=== PATIENT | female | born 1985 | race Caucasian/White ===

== ENCOUNTER 2017-12-05 01:21 | Observation (INO) | payer MEDICARE, MEDICAID ==
[2017-12-05] MEDS ORDERED: Prochlorperazine 10 MG/2 ML SDV IVPUSH ONE (02:11)
[2017-12-05] MEDS ORDERED: fentaNYL 100 MCG/2 ML SDV IVPUSH ONE (02:11)
[2017-12-05] MEDS ORDERED: Sodium Chloride 0.9% 10 ML Syringe FLUSH PRN ×2 (02:11→10:11)
[2017-12-05] MEDS ORDERED: Sodium Chloride 0.9% 1,000 ML IV SCH (02:15)
--- NOTE | 2017-12-05 02:33 | EDM.PDOC ---
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 Additional abdominal surgery includes sleeve gastrectomy,and cholecystectomy. Was trying to get to bed tonight at about 11 PM when she had fairly sudden onset of upper abdominal pain, radiates upwards and bilateral flank pain Vomited twice. She's been tired and nauseated all day but the pain didn't come on until this evening. She also reports feeling lightheaded when she gets up. last bowel movement was in the morning, pale, as usual loose. Pain feels like when she's had small bowel obstruction. In June she had about 3 days of abdominal pain that she put up with, didn' t see anyone and that subsided on its own. She is on oral contraceptive. No comfortable position, pain is aggravated by movement outpatient exertion. Not affected by breathing. No urinary symptoms Middle Abdomen Pain Score (Numeric/FACES): 10 - Related Data Allergies Allergy/AdvReac Type Severity Reaction Status Date / Time caffeine Allergy Severe Chest Verified 03/25/16 03:52 Presssure diphenhydramine HCl Allergy Severe Chest Verified 03/25/16 03:52 [From Benadryl] Tightness azithromycin Allergy Hives Verified 03/25/16 03:52 clindamycin Allergy Hives Verified 03/25/16 03:52 codeine Allergy Hives Verified 03/25/16 03:52 doxycycline Allergy Hypertensio Verified 03/25/16 03:52 n hydrocodone Allergy Hives Verified 03/25/16 03:52 hydromorphone HCl Allergy Hypertensio Verified 03/25/16 03:52 [From Dilaudid] n ketorolac tromethamine Allergy Headache Verified 03/25/16 03:52 [From Toradol] loratadine [From Claritin] Allergy Cannot Verified 03/25/16 03:52 Remember oxycodone [Oxycodone] Allergy Hives Verified 03/25/16 03:52 Penicillins Allergy Cannot Verified 03/25/16 03:52 Remember sulfite Allergy Cannot Verified 03/25/16 03:52 Remember tomato [Tomato] Allergy Rash Verified 03/25/16 03:52 ondansetron HCl [From Zofran] AdvReac Intermediate Migraine Verified 03/25/16 03 :52 tramadol AdvReac Headache Verified 03/25/16 03:52 navarro jello Allergy Vomiting Uncoded 03/25/16 03:52 Home Meds: Home Meds Colestipol HCl [Colestipol HCl] 1 gm PO BID 09/26/13 [History] Ethinyl Estradiol/Drospirenone [Caitlin 28] 1 each PO DAILY 09/26/13 [History] Levothyroxine Sodium [Synthroid] 200 mcg PO DAILY 09/26/13 [History] Magnesium 400 mg PO DAILY 09/26/13 [History] Methocarbamol [Robaxin] 1,500 mg PO TID PRN 09/26/13 [History] Octreotide [SandoSTATIN LAR] 20 mg IM .Q4W 09/29/13 [History] Propranolol [Inderal] 10 mg PO TID 07/21/14 [History] Albuterol Sulfate [Proair Hfa] 2 puff IH ASDIRECTED PRN 07/09/15 [History] Budesonide/Formoterol [Symbicort 160-4.5 MCG] 2 puff INH BID 07/09/15 [History] EPINEPHrine [Epipen 2-Mike] 0.3 ml IM ASDIRECTED PRN 07/09/15 [History] Lidocaine 5% [Lidoderm 5%] 1 patch TOP DAILY 07/09/15 [History] Multivit with Calcium,Iron,Min [Multivitamins G-Rlyxfux-Wfkc] 1 tab PO BID 07/09 [History] Multivitamin [Multi-Vitamin Daily] 1 tab.chew PO BID 07/09/15 [History] Omeprazole [Prilosec] 40 mg PO DAILY 07/09/15 [History] Promethazine [Phenergan] 25 mg PO Q6H PRN 07/09/15 [History] Fluocinolone/Emol Cmb#65 [Synalar 0.025% Cream Kit] 1 dose TP BID 03/25/16 [ History] Past Medical History Cardiovascular History: Reports: Heart Murmur, Other (See Below) Other Cardiovascular History: tachy Respiratory History: Reports: Bronchitis, Recurrent Other Respiratory History: exercised induced asthma Gastrointestinal History: Reports: Bowel Obstruction [employer] History: Reports: Polycystic Ovaries Other Musculoskeletal History: left and right arm fracture Psychiatric History: Reports: Anxiety, Depression Endocrine/Metabolic History: Reports: Hypothyroidism Hematologic History: Reports: B12 Deficiency Other Hematologic History: B12 and B1 deficiency Other Oncologic History: 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, 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 - Infectious Disease History Infectious Disease History: Reports: Chicken Pox - Past Surgical History HEENT Surgical History: Reports: Adenoidectomy GI Surgical History: Reports: Appendectomy, Cholecystectomy, Hernia, Abdominal Musculoskeletal Surgical History: Reports: Arthroscopic Knee Oncologic Surgical History: Reports: Other (See Below) Social & Family History - Family History Family Medical History: Noncontributory - Tobacco Use Smoking Status *Q: Former Smoker Years of Tobacco use: 5 Packs/Tins Daily: 0.5 Used Tobacco, but Quit: No Month Tobacco Last Used: oct Second Hand Smoke Exposure: No - Caffeine Use Caffeine Use: Reports: None - Alcohol Use Days Per Week of Alcohol Use: 0 - Recreational Drug Use Recreational Drug Use: No ED ROS GENERAL - Review of Systems Review Of Systems: See Below Constitutional: Reports: Decreased Appetite, Other (sleep disturbance). Denies : Fever, Chills HEENT: Reports: No Symptoms Respiratory: Reports: No Symptoms Cardiovascular: Reports: No Symptoms GI/Abdominal: Reports: Abdominal Pain, Diarrhea (chronic), Decreased Appetite, Nausea, Vomiting, Other (bloating) : Reports: No Symptoms Musculoskeletal: Reports: No Symptoms Skin: Reports: No Symptoms Neurological: Reports: No Symptoms Immunologic: Reports: No Symptoms ED EXAM, GI/ABD - Physical Exam Exam: See Below Exam Limited By: No Limitations General Appearance: Moderate Distress, Other (very uncomfortable almost tearful , vital signs normal, no difficulty breathing and speaking but she is in considerable discomfort) Eyes: Bilateral: Normal Appearance Ears: Normal External Exam, Hearing Grossly Normal Nose: Normal Inspection Head: Atraumatic, Normocephalic Neck: Normal Inspection Respiratory/Chest: No Respiratory Distress, Lungs Clear, Normal Breath Sounds Cardiovascular: Normal Peripheral Pulses, Regular Rate, Rhythm, No Murmur GI/Abdominal Exam: Soft, Distended, Tender (upper abdomen/epigastric area), Abnormal Bowel Sounds (slightly increased in quantity, slight increase in pitch) . No: Mass, Hepatomegaly Back Exam: Normal Inspection Extremities: Normal Inspection Neurological: Alert, No Motor/Sensory Deficits Psychiatric: Anxious, Tearful Skin Exam: Warm, Dry, Intact, Normal Color, No Rash Lymphatic: No Adenopathy Course - Vital Signs Last Recorded V/S: Last Vital Signs Temp 36.9 C 12/05/17 01:33 Pulse 84 12/05/17 02:52 Resp 18 12/05/17 01:33 BP 103/54 L 12/05/17 05:00 Pulse Ox 97 12/05/17 01:33 - Orders/Labs/Meds Orders: Active Orders 24 hr Category Date Time Status Peripheral IV Care [RC] . DIRECTED Care 12/05/17 02:12 Active Abdomen 2V AP Flat Upright [CR] Stat Exams 12/05/17 02:11 Taken Sodium Chloride 0.9% [Normal Saline] 1,000 ml Med 12/05/17 02:15 Active IV ASDIRECTED Sodium Chloride 0.9% [Saline Flush] Med 12/05/17 02:11 Active 10 ml FLUSH ASDIRECTED PRN Peripheral IV Insertion Adult [OM.PC] Routine Oth 12/05/17 02:11 Ordered Medication Orders Sodium Chloride (Normal Saline) 1,000 mls @ 250 mls/hr IV ASDIRECTED [facility] Last Admin: 12/05/17 02:47 Dose: 250 mls/hr Sodium Chloride (Saline Flush) 10 ml FLUSH ASDIRECTED PRN PRN Reason: Keep Vein Open Labs: Laboratory Tests 12/05/17 12/05/17 12/05/17 Range/Units 02:00 02:00 02:00 WBC 12.8 H (4.5-11.0) K/uL RBC 4.62 (3.30-5.50) M/uL Hgb 14.2 D (12.0-15.0) g/dL Hct 43.0 (36.0-48.0) % MCV 93 (80-98) fL MCH 31 (27-31) pg MCHC 33 (32-36) % Plt Count 273 (150-400) K/uL Sodium 137 L (140-148) mmol/L Potassium 4.2 (3.6-5.2) mmol/L Chloride 102 (100-108) mmol/L Carbon Dioxide 25 (21-32) mmol/L Anion Gap 14.2 H (5.0-14.0) mmol/L BUN 17 D (7-18) mg/dL Creatinine 0.8 (0.6-1.0) mg/dL Est Cr Clr Drug Dosing 97.27 mL/min Estimated GFR (MDRD) > 60 (>60) Glucose 94 (74-106) mg/dL Lactic Acid 2.0 (0.4-2.0) mmol/L Calcium 8.6 (8.5-10.1) mg/dL Total Bilirubin 0.2 D (0.2-1.0) mg/dL AST 20 (15-37) U/L ALT 27 (12-78) U/L Alkaline Phosphatase 56 (46-116) U/L Total Protein 6.6 (6.4-8.2) g/dL Albumin 3.4 (3.4-5.0) g/dL Globulin 3.2 (2.3-3.5) g/dL Albumin/Globulin Ratio 1.1 L (1.2-2.2) Lipase 86 (73-393) U/L Meds: Medications Generic Name Dose Route Start Last Admin Trade Name Fregregg PRN Reason Stop Dose Admin Sodium Chloride 1,000 mls @ 250 mls/hr 12/05/17 02:15 12/05/17 02:47 Normal Saline IV 250 mls/hr ASDIRECTED RYLEY Administration Sodium Chloride 10 ml 12/05/17 02:11 Saline Flush FLUSH ASDIRECTED PRN Keep Vein Open Discontinued Medications Generic Name Dose Route Start Last Admin Trade Name Fregregg PRN Reason Stop Dose Admin Fentanyl 100 mcg 12/05/17 02:11 Sublimaze IVPUSH 12/05/17 02:12 ONETIME ONE Hydroxyzine HCl 50 mg 12/05/17 02:34 Vistaril IM 12/05/17 02:35 ONETIME ONE Promethazine HCl 12.5 mg/ 50.5 mls @ 200 mls/hr 12/05/17 02:42 12/05/17 02:47 Sodium Chloride IV 12/05/17 02:57 200 mls/hr ONETIME STA Administration Meperidine HCl 75 mg 12/05/17 02:34 12/05/17 02:39 Demerol IVPUSH 12/05/17 02:35 75 mg ONETIME STA Administration Prochlorperazine Edisylate 5 mg 12/05/17 02:11 Compazine IVPUSH 12/05/17 02:12 ONETIME ONE - Re-Assessments/Exams Free Text/Narrative Re-Assessment/Exam: 12/05/17 02:41 32-year-old female with history of carcinoid tumor resection involving right hemicolectomy, small bowel obstruction requiring operative repair, abdominal hernia repair complicated by infection who presents with sudden onset of abdominal pain bloating vomiting tonight. differential diagnosis includes small bowel obstruction, colitis, pancreatitis, volvulus at other causes of abdominal pain. Less likely to be renal Intravenous saline, Demerol 75 mg and Phenergan 12.5 mg, she has extensive intolerance which limits the choices of medications 12/05/17 03:34 mild improvement, more comfortable, declines further pain medication at this time Abdominal x-ray negative for acute changes by my interpretation although x-ray has limitations Mild elevation WBC of 12.8, electrolytes normal except sodium 137 Anion gap minimally above normal Hepatic profile urea creatinine and lipase normal Continue IV saline, observed for the next few hours if it worsens or doesn't improve then CT scan may be necessary to determine if she has obstruction or infection or other condition causing her pain 12/05/17 03:35 12/05/17 06:53 Did not need further medicine Jenny the night, however she still has pain there and she knows that she moves it aggravates the discomfort. Has received a liter of fluid over the time she was here. 12/05/17 07:10 Moving slowly, still noticeable discomfort when she urinated Discussed with Mildred BRADLEY, Dr. King is away on vacation Observation admission for abdominal pain, possible partial small bowel obstruction Departure - Departure Time of Disposition: 07:10 Disposition: Refer to Observation Clinical Impression: Partial small bowel obstruction, Generalized abdominal pain - Discharge Information Referrals: Karie Arriaga PA [Primary Care Provider] - - My Orders Last 24 Hours: My Active Orders 12/05/17 02:11 Abdomen 2V AP Flat Upright [CR] Stat Sodium Chloride 0.9% [Saline Flush] 10 ml FLUSH ASDIRECTED PRN Peripheral IV Insertion Adult [OM.PC] Routine 12/05/17 02:12 Peripheral IV Care [RC] . DIRECTED 12/05/17 02:15 Sodium Chloride 0.9% [Normal Saline] 1,000 ml IV ASDIRECTED - Assessment/Plan Last 24 Hours: My Active Orders 12/05/17 02:11 Abdomen 2V AP Flat Upright [CR] Stat Sodium Chloride 0.9% [Saline Flush] 10 ml FLUSH ASDIRECTED PRN Peripheral IV Insertion Adult [OM.PC] Routine 12/05/17 02:12 Peripheral IV Care [RC] . DIRECTED 12/05/17 02:15 Sodium Chloride 0.9% [Normal Saline] 1,000 ml IV ASDIRECTED
[2017-12-05] MEDS ORDERED: hydrOXYzine HCl 100 MG/2 ML SDV IM ONE (02:34)
[2017-12-05] MEDS ORDERED: Meperidine PF 75 MG/ML Syringe IVPUSH STA (02:34)
[2017-12-05] MEDS ORDERED: Promethazine 12.5 MG in Sodium Chloride 0.9% 50 ML IV STA (02:42)
[2017-12-05] MEDS ORDERED: Dextrose 5%-Lactated Ringers 1,000 ML IV SCH (08:15)
[2017-12-05] MEDS ORDERED: Meperidine PF 25 MG/ML Syringe IVPUSH PRN (08:18)
[2017-12-05] MEDS ORDERED: Promethazine 12.5 MG in Sodium Chloride 0.9% 50 ML IV PRN (08:19)
[2017-12-05] MEDS ORDERED: Iohexol 300 MG/ML 30 ML Bottle PO ONE (08:40)
--- NOTE | 2017-12-05 09:09 | CR ---
Abdomen 2V AP Flat Upright FINDINGS: There are postsurgical changes of the stomach. Surgical clips and sutures are noted. The gregg wel gas pattern is unremarkable. There is no bowel distention. There are no pathologic air-fluid leve ls. No free air is seen. No pathologic calcifications are demonstrated. IMPRESSION: No acute findings are demonstrated.
[2017-12-05] MEDS ORDERED: Iopamidol 612 MG/ML 150 ML Bottle IV PRN (10:11)
[2017-12-05] MEDS ORDERED: Sodium Chloride 0.9% 80 ML IV SCH (10:15)
[2017-12-05 11:27] VITALS: BP 111/61
--- NOTE | 2017-12-06 07:55 | PCM.HP ---
H&P History of Present Illness - General Date of Service: 12/06/17 Source of Information: Patient History Limitations: Reports: No Limitations - History of Present Illness Onset of Symptoms: Reports: Sudden Symptom Onset Date: 12/05/17 Symptom Onset Time: 23:00 Duration of Symptoms: Reports: Waxing/Waning Location: Reports: Abdomen (right middle abdominal quadrant) Quality: Reports: Pressure, Same as Previous Episode, Stabbing, Throbbing Improves with: Reports: Medication Worsens with: Reports: Breathing, Eating, Movement Context: Reports: Sick Contact Associated Symptoms: Reports: Loss of Appetite, Nausea/Vomiting Middle Abdomen Pain Score (Numeric/FACES): 5 - Related Data Allergies/Adverse Reactions: Allergies Allergy/AdvReac Type Severity Reaction Status Date / Time caffeine Allergy Severe Chest Verified 03/25/16 03:52 Presssure diphenhydramine HCl Allergy Severe Chest Verified 03/25/16 03:52 [From Benadryl] Tightness azithromycin Allergy Hives Verified 03/25/16 03:52 clindamycin Allergy Hives Verified 03/25/16 03:52 codeine Allergy Hives Verified 03/25/16 03:52 doxycycline Allergy Hypertensio Verified 03/25/16 03:52 n hydrocodone Allergy Hives Verified 03/25/16 03:52 hydromorphone HCl Allergy Hypertensio Verified 03/25/16 03:52 [From Dilaudid] n ketorolac tromethamine Allergy Headache Verified 03/25/16 03:52 [From Toradol] loratadine [From Claritin] Allergy Cannot Verified 03/25/16 03:52 Remember oxycodone [Oxycodone] Allergy Hives Verified 03/25/16 03:52 Penicillins Allergy Cannot Verified 03/25/16 03:52 Remember sulfite Allergy Cannot Verified 03/25/16 03:52 Remember tomato [Tomato] Allergy Rash Verified 03/25/16 03:52 ondansetron HCl [From Zofran] AdvReac Intermediate Migraine Verified 03/25/16 03 :52 tramadol AdvReac Headache Verified 03/25/16 03:52 navarro jello Allergy Vomiting Uncoded 03/25/16 03:52 Home Medications: Home Meds Colestipol HCl [Colestipol HCl] 1 gm PO BID 09/26/13 [History] Ethinyl Estradiol/Drospirenone [Caitlin 28] 1 each PO DAILY 09/26/13 [History] Levothyroxine Sodium [Synthroid] 200 mcg PO DAILY 09/26/13 [History] Magnesium 400 mg PO DAILY 09/26/13 [History] Methocarbamol [Robaxin] 1,500 mg PO TID PRN 09/26/13 [History] Octreotide [SandoSTATIN LAR] 20 mg IM .Q4W 09/29/13 [History] Propranolol [Inderal] 10 mg PO TID 07/21/14 [History] Albuterol Sulfate [Proair Hfa] 2 puff IH ASDIRECTED PRN 07/09/15 [History] Budesonide/Formoterol [Symbicort 160-4.5 MCG] 2 puff INH BID 07/09/15 [History] EPINEPHrine [Epipen 2-Mike] 0.3 ml IM ASDIRECTED PRN 07/09/15 [History] Lidocaine 5% [Lidoderm 5%] 1 patch TOP DAILY 07/09/15 [History] Multivit with Calcium,Iron,Min [Multivitamins S-Vkwbjhn-Plik] 1 tab PO BID 07/09 [History] Multivitamin [Multi-Vitamin Daily] 1 tab.chew PO BID 07/09/15 [History] Omeprazole [Prilosec] 40 mg PO DAILY 07/09/15 [History] Promethazine [Phenergan] 25 mg PO Q6H PRN 07/09/15 [History] Fluocinolone/Emol Cmb#65 [Synalar 0.025% Cream Kit] 1 dose TP BID 03/25/16 [ History] Past Medical History Cardiovascular History: Reports: Heart Murmur, Other (See Below) Other Cardiovascular History: tachycardia Respiratory History: Reports: Bronchitis, Recurrent Other Respiratory History: exercised induced asthma Gastrointestinal History: Reports: Bowel Obstruction [employer] History: Reports: Polycystic Ovaries Other Musculoskeletal History: left and right arm fracture Psychiatric History: Reports: Anxiety, Depression Endocrine/Metabolic History: Reports: Hypothyroidism Hematologic History: Reports: B12 Deficiency Other Hematologic History: B12 and B1 deficiency Other Oncologic History: 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, 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 - Infectious Disease History Infectious Disease History: Reports: Chicken Pox - Past Surgical History HEENT Surgical History: Reports: Adenoidectomy GI Surgical History: Reports: Appendectomy, Cholecystectomy, Hernia, Abdominal Musculoskeletal Surgical History: Reports: Arthroscopic Knee Oncologic Surgical History: Reports: Other (See Below) Social & Family History - Family History Family Medical History: Noncontributory - Tobacco Use Smoking Status *Q: Former Smoker Years of Tobacco use: 5 Packs/Tins Daily: 0.5 Used Tobacco, but Quit: Yes Month Tobacco Last Used: 14 years Second Hand Smoke Exposure: No - Caffeine Use Caffeine Use: Reports: None - Alcohol Use Days Per Week of Alcohol Use: 0 - Recreational Drug Use Recreational Drug Use: No H&P Review of Systems - Review of Systems: Review Of Systems: See Below General: Reports: Weakness, Fatigue HEENT: Reports: No Symptoms Pulmonary: Reports: No Symptoms Cardiovascular: Reports: No Symptoms Gastrointestinal: Reports: Abdominal Pain (see chief complaint), Other (BMs have been regular) Genitourinary: Reports: No Symptoms Musculoskeletal: Reports: Back Pain (chronic) Skin: Reports: No Symptoms Psychiatric: Reports: Depression Neurological: Reports: No Symptoms Hematologic/Lymphatic: Reports: No Symptoms Immunologic: Reports: No Symptoms Exam - Exam Exam: See Below - Vital Signs Vital Signs: Last Vital Signs Temp 98.5 F 12/05/17 11:05 Pulse 55 L 12/05/17 11:05 Resp 16 12/05/17 11:05 BP 111/61 12/05/17 11:05 Pulse Ox 100 12/05/17 11:05 Weight: 197 lb 1.492 oz - Exam General: Alert, Oriented, Mild Distress HEENT: PERRLA Neck: Supple, Trachea Midline Lungs: Clear to Auscultation, Normal Respiratory Effort Cardiovascular: Regular Rate, Regular Rhythm GI/Abdominal Exam: Soft, Tender (right mid and upper abdominal quadrants radiating to her back) (Female) Exam: Deferred Rectal (Female) Exam: Deferred Back Exam: Normal Inspection, Full Range of Motion Extremities: Normal Inspection, Normal Range of Motion Skin: Warm, Dry, Intact Neurological: Cranial Nerves Intact Neuro Extensive - Mental Status: Alert, Oriented x3, Normal Mood/Affect Neuro Extensive - Motor, Sensory, Reflexes: CN II-XII Intact Psychiatric: Alert, Normal Affect, Normal Mood - Patient Data Lab Results Last 24 hrs: Laboratory Results - last 24 hr 12/05/17 12/05/17 Range/Units 08:17 10:32 Ferritin 192 (8-388) ng/ml Urine Color Yellow Urine Appearance Slightly cloudy Urine pH 5.0 (4.5-8.0) Ur Specific [place] 1.015 (1.008-1.030) Urine Protein Negative (NEGATIVE) mg/dL Urine Glucose (UA) Normal (NEGATIVE) mg/dL Urine Ketones Negative (NEGATIVE) mg/dL Urine Occult Blood Negative (NEGATIVE) Urine Nitrite Negative (NEGATIVE) Urine Bilirubin Small (NEGATIVE) Urine Urobilinogen Normal (NORMAL) mg/dL Ur Leukocyte Esterase Negative (NEGATIVE) Urine RBC Not seen (0-5) Urine WBC 0-5 (0-5) Ur Epithelial Cells Few Amorphous Sediment Not seen Urine Bacteria Few Urine Mucus Moderate Result Diagrams: 12/05/17 02:00 12/05/17 02:00 *Q Meaningful Use (ADM) - VTE *Q VTE Criteria *Q: - Stroke *Q Stroke Criteria *Q: - AMI *Q AMI Criteria *Q: - Problem List (1) Status post laparoscopic sleeve gastrectomy SNOMED Code(s): 260583522 ICD Code: Z98.84 - BARIATRIC SURGERY STATUS Status: Acute (2) Partial small bowel obstruction SNOMED Code(s): 804760533 ICD Code: K56.600 - PARTIAL INTESTINAL OBSTRUCTION, UNSPECIFIED TO CAUSE Status: Acute (3) Carcinoid tumor SNOMED Code(s): 831878297 ICD Code: D3A.00 - BENIGN CARCINOID TUMOR OF UNSPECIFIED SITE Status: Chronic Problem List Initiated/Reviewed/Updated: Yes Orders Last 24hrs: Active Orders 24 hr Category Date Time Status Activity as Tolerated [RC] .Routine Care 12/05/17 08:06 Active Ambulate [RC] QID Care 12/05/17 08:06 Active Height and Weight [RC] UPON Care 12/05/17 08:06 Active Intake and Output [RC] QSHIFT Care 12/05/17 08:11 Active May Shower [RC] ASDIRECTED Care 12/05/17 08:06 Active Ready for Discharge [RC] PER UNIT ROUTINE Care 12/05/17 12:32 Active Up to Chair [RC] QID Care 12/05/17 08:06 Active Vital Signs [RC] Q8H Care 12/05/17 08:06 Active Sequential Compression Device [OM.PC] Routine Oth 12/05/17 08:06 Ordered Assessment/Plan Comment:: Admit to Observation CT of Abdomen/Pelvis with oral and IV Contrast. Call with results of CT Scan See Copy of orders in EMR Mildred Vaughan 12/05/17
--- NOTE | 2017-12-06 08:01 | PCM.DCSUM1 ---
Discharge Summary - Discharge Data Discharge Date: 12/05/17 Discharge Disposition: Refer to Observation Condition: Good - Discharge Diagnosis/Problem(s) (1) Status post laparoscopic sleeve gastrectomy SNOMED Code(s): 386999060 ICD Code: Z98.84 - BARIATRIC SURGERY STATUS Status: Acute (2) Partial small bowel obstruction SNOMED Code(s): 255923663 ICD Code: K56.600 - PARTIAL INTESTINAL OBSTRUCTION, UNSPECIFIED TO CAUSE Status: Acute (3) Carcinoid tumor SNOMED Code(s): 308854490 ICD Code: D3A.00 - BENIGN CARCINOID TUMOR OF UNSPECIFIED SITE Status: Chronic - Patient Instructions Diet: Regular Diet as Tolerated Showering/Bathing: May Shower Notify Provider of: Fever, Increased Pain, Nausea and/or Vomiting - Discharge Plan Home Medications: Home Meds Colestipol HCl [Colestipol HCl] 1 gm PO BID 09/26/13 [History] Ethinyl Estradiol/Drospirenone [Caitlin 28] 1 each PO DAILY 09/26/13 [History] Levothyroxine Sodium [Synthroid] 200 mcg PO DAILY 09/26/13 [History] Magnesium 400 mg PO DAILY 09/26/13 [History] Methocarbamol [Robaxin] 1,500 mg PO TID PRN 09/26/13 [History] Octreotide [SandoSTATIN LAR] 20 mg IM .Q4W 09/29/13 [History] Propranolol [Inderal] 10 mg PO TID 07/21/14 [History] Albuterol Sulfate [Proair Hfa] 2 puff IH ASDIRECTED PRN 07/09/15 [History] Budesonide/Formoterol [Symbicort 160-4.5 MCG] 2 puff INH BID 07/09/15 [History] EPINEPHrine [Epipen 2-Mike] 0.3 ml IM ASDIRECTED PRN 07/09/15 [History] Lidocaine 5% [Lidoderm 5%] 1 patch TOP DAILY 07/09/15 [History] Multivit with Calcium,Iron,Min [Multivitamins J-Nxjcjib-Fjbo] 1 tab PO BID 07/09 [History] Multivitamin [Multi-Vitamin Daily] 1 tab.chew PO BID 07/09/15 [History] Omeprazole [Prilosec] 40 mg PO DAILY 07/09/15 [History] Promethazine [Phenergan] 25 mg PO Q6H PRN 07/09/15 [History] Fluocinolone/Emol Cmb#65 [Synalar 0.025% Cream Kit] 1 dose TP BID 03/25/16 [ History] Referrals: Karie Arriaga PA [Primary Care Provider] - - Discharge Summary/Plan Comment DC Time >30 min.: No Discharge Summary/Plan Comment: Patient's IV infiltrated and she declined to have a CT Scan if she had to have another IV restarted. Pain had improved so she requested to be discharged. Leslie was able to eat and had no pain. Discharged in stable condition to follow up in 1 week or prn Mildred BRADLEY C - Patient Data Vitals - Most Recent: Last Vital Signs Temp 98.5 F 12/05/17 11:05 Pulse 55 L 12/05/17 11:05 Resp 16 12/05/17 11:05 BP 111/61 12/05/17 11:05 Pulse Ox 100 12/05/17 11:05 Weight - Most Recent: 197 lb 1.492 oz Lab Results - Last 24 hrs: Laboratory Results - last 24 hr 12/05/17 12/05/17 Range/Units 08:17 10:32 Ferritin 192 (8-388) ng/ml Urine Color Yellow Urine Appearance Slightly cloudy Urine pH 5.0 (4.5-8.0) Ur Specific [place] 1.015 (1.008-1.030) Urine Protein Negative (NEGATIVE) mg/dL Urine Glucose (UA) Normal (NEGATIVE) mg/dL Urine Ketones Negative (NEGATIVE) mg/dL Urine Occult Blood Negative (NEGATIVE) Urine Nitrite Negative (NEGATIVE) Urine Bilirubin Small (NEGATIVE) Urine Urobilinogen Normal (NORMAL) mg/dL Ur Leukocyte Esterase Negative (NEGATIVE) Urine RBC Not seen (0-5) Urine WBC 0-5 (0-5) Ur Epithelial Cells Few Amorphous Sediment Not seen Urine Bacteria Few Urine Mucus Moderate Med Orders - Current: Current Medications Discontinued Medications Fentanyl (Sublimaze) 100 mcg IVPUSH ONETIME ONE Stop: 12/05/17 02:12 Last Admin: 12/05/17 10:47 Dose: Not Given Hydroxyzine HCl (Vistaril) 50 mg IM ONETIME ONE Stop: 12/05/17 02:35 Last Admin: 12/05/17 10:48 Dose: Not Given Sodium Chloride (Normal Saline) 1,000 mls @ 250 mls/hr IV ASDIRECTED RYLEY Last Admin: 12/05/17 02:47 Dose: 250 mls/hr Promethazine HCl 12.5 mg/ (Sodium Chloride) 50.5 mls @ 200 mls/hr IV ONETIME STA Stop: 12/05/17 02:57 Last Admin: 12/05/17 02:47 Dose: 200 mls/hr Dextrose/Lactated Ringer's (Dextrose 5%-Lactated Ringers) 1,000 mls @ 125 mls/ hr IV ASDIRECTED RYLEY Last Admin: 12/05/17 09:01 Dose: 125 mls/hr Promethazine HCl 12.5 mg/ (Sodium Chloride) 50.5 mls @ 200 mls/hr IV Q6H PRN PRN Reason: Nausea/Vomiting Last Admin: 12/05/17 09:00 Dose: 200 mls/hr Sodium Chloride (Normal Saline) 80 mls @ 3.5 mls/sec IV ASDIRECTED [facility] Iohexol (Omnipaque) 20 ml PO ONETIME ONE Stop: 12/05/17 08:41 Last Admin: 12/05/17 09:11 Dose: 20 ml Iopamidol (Isovue-300 (61%)) 134 ml IV . DIRECTED PRN PRN Reason: RADIOLOGY EXAM Stop: 12/06/17 10:12 Meperidine HCl (Demerol) 75 mg IVPUSH ONETIME STA Stop: 12/05/17 02:35 Last Admin: 12/05/17 02:39 Dose: 75 mg Meperidine HCl (Demerol) 25 mg IVPUSH Q4H PRN PRN Reason: Pain Prochlorperazine Edisylate (Compazine) 5 mg IVPUSH ONETIME ONE Stop: 12/05/17 02:12 Last Admin: 12/05/17 10:47 Dose: Not Given Sodium Chloride (Saline Flush) 10 ml FLUSH ASDIRECTED PRN PRN Reason: Keep Vein Open Sodium Chloride (Saline Flush) 10 ml FLUSH ONETIME PRN PRN Reason: per radiology protocol *Q Meaningful Use (DIS) - VTE *Q VTE Criteria *Q: - Stroke *Q Stroke Criteria *Q: - AMI *Q AMI Criteria *Q:
== END 2017-12-05 13:00 ==
LOC: JP.ED 01:21 → JP.2SS 07:54
PROVIDERS: ADMIT Surgery; ATTEND Surgery
DX: K56.600 Partial intestinal obstruction, unspecified as to cause (principal); D3A.012 Benign carcinoid tumor of the ileum; J45.990 Exercise induced bronchospasm; F41.9 Anxiety disorder, unspecified; F32.9 Major depressive disorder, single episode, unspecified; E03.9 Hypothyroidism, unspecified; Z90.49 Acquired absence of other specified parts of digestive tract; Z98.84 Bariatric surgery status; Z79.899 Other long term (current) drug therapy; Z88.1 Allergy status to other antibiotic agents; Z88.8 Allergy status to other drugs, medicaments and biological substances; Z88.0 Allergy status to penicillin; Z88.2 Allergy status to sulfonamides; Z91.018 Allergy to other foods; Z87.891 Personal history of nicotine dependence
CPT/HCPCS: 36415; 74019; 80053; 81001; 82728; 83605; 83690; 85027; 96361; 96365; 96375; 99284; 99285; J2175; J2550; J7040; J7042; J7050; Q9965; G0378

== ENCOUNTER 2018-04-14 23:51 | Emergency (ER) | payer MEDICARE, MEDICAID ==
[2018-04-15] MEDS ORDERED: Cefdinir 300 MG Cap PO ONE (00:53)
[2018-04-15 00:58] VITALS: BP 132/96
--- NOTE | 2018-04-15 00:59 | EDM.PDOC ---
ED HPI GENERAL MEDICAL PROBLEM - General Chief Complaint: Genitourinary Problem Stated Complaint: BLADDER INFECTION Time Seen by Provider: 04/15/18 00:47 Source of Information: Reports: Patient, RN Notes Reviewed History Limitations: Reports: No Limitations - History of Present Illness INITIAL COMMENTS - FREE TEXT/NARRATIVE: 32-year-old female presents emergency department today complaint of burning with urination, she does have a history of frequent UTIs as well as multiple allergies this particular episode started a couple days ago with dysuria and frequency no fevers some back pain pelvis/bladder Pain Score (Numeric/FACES): 6 back pain Pain Score (Numeric/FACES): 6 - Related Data Allergies Allergy/AdvReac Type Severity Reaction Status Date / Time caffeine Allergy Severe Chest Verified 04/15/18 00:18 Presssure diphenhydramine HCl Allergy Severe Chest Verified 04/15/18 00:18 [From Benadryl] Tightness azithromycin Allergy Hives Verified 04/15/18 00:18 clindamycin Allergy Hives Verified 04/15/18 00:18 codeine Allergy Hives Verified 04/15/18 00:18 doxycycline Allergy Hypertensio Verified 04/15/18 00:18 n etodolac Allergy Muscle Verified 04/15/18 00:22 Aches hydrocodone Allergy Hives Verified 04/15/18 00:18 hydromorphone HCl Allergy Hypertensio Verified 04/15/18 00:18 [From Dilaudid] n ketorolac tromethamine Allergy Headache Verified 04/15/18 00:18 [From Toradol] loratadine [From Claritin] Allergy Cannot Verified 04/15/18 00:18 Remember nitrofurantoin Allergy Airway Verified 04/15/18 00:22 Tightness oxycodone [Oxycodone] Allergy Hives Verified 04/15/18 00:18 Penicillins Allergy Cannot Verified 04/15/18 00:18 Remember sulfite Allergy Cannot Verified 04/15/18 00:18 Remember tomato [Tomato] Allergy Rash Verified 04/15/18 00:18 ondansetron HCl [From Zofran] AdvReac Intermediate Migraine Verified 04/15/18 00 :18 tramadol AdvReac Headache Verified 04/15/18 00:18 navarro jello Allergy Vomiting Uncoded 04/15/18 00:18 Home Meds: Home Meds Colestipol HCl 1 gm PO BID 09/26/13 [History] Ethinyl Estradiol/Drospirenone [Caitlin 28] 1 each PO DAILY 09/26/13 [History] Levothyroxine Sodium [Synthroid] 200 mcg PO DAILY 09/26/13 [History] Magnesium 400 mg PO DAILY 09/26/13 [History] Methocarbamol [Robaxin] 1,500 mg PO TID PRN 09/26/13 [History] Octreotide [SandoSTATIN LAR] 20 mg IM .Q4W 09/29/13 [History] Propranolol [Inderal] 10 mg PO TID 07/21/14 [History] Albuterol Sulfate [Proair Hfa] 2 puff IH ASDIRECTED PRN 07/09/15 [History] Budesonide/Formoterol [Symbicort 160-4.5 MCG] 2 puff INH BID 07/09/15 [History] EPINEPHrine [Epipen 2-Mike] 0.3 ml IM ASDIRECTED PRN 07/09/15 [History] Lidocaine 5% [Lidoderm 5%] 1 patch TOP DAILY 07/09/15 [History] Multivit with Calcium,Iron,Min [Multivitamins P-Osxdaiz-Zldg] 1 tab PO BID 07/09 [History] Multivitamin [Multi-Vitamin Daily] 1 tab.chew PO BID 07/09/15 [History] Omeprazole [Prilosec] 40 mg PO DAILY 07/09/15 [History] Promethazine [Phenergan] 25 mg PO Q6H PRN 07/09/15 [History] Fluocinolone/Emol Comb No.65 [Synalar 0.025% Cream Kit] 1 dose TP BID 03/25/16 [ History] Past Medical History HEENT History: Reports: Impaired Vision Cardiovascular History: Reports: Heart Murmur, Other (See Below) Other Cardiovascular History: tachycardia Respiratory History: Reports: Bronchitis, Recurrent, Other (See Below) Other Respiratory History: exercised induced asthma Gastrointestinal History: Reports: Bowel Obstruction Genitourinary History: Reports: UTI, Recurrent EN[employer]MENT[employer] TECH History: Reports: Polycystic Ovaries Musculoskeletal History: Reports: Other (See Below) Other Musculoskeletal History: left and right arm fracture Neurological History: Reports: Headaches, Chronic, Migraines Psychiatric History: Reports: Anxiety, Depression Endocrine/Metabolic History: Reports: Hypothyroidism Hematologic History: Reports: B12 Deficiency Other Hematologic History: B12 and B1 deficiency Oncologic (Cancer) History: Reports: Other (See Below) Other Oncologic History: 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, 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 Dermatologic History: Reports: Other (See Below) Other Dermatologic History: granuloma anulary - Infectious Disease History Infectious Disease History: Reports: Chicken Pox, Measles - Past Surgical History HEENT Surgical History: Reports: Adenoidectomy, Tonsillectomy GI Surgical History: Reports: Appendectomy, Cholecystectomy, Hernia, Abdominal Musculoskeletal Surgical History: Reports: Arthroscopic Knee Oncologic Surgical History: Reports: Other (See Below) Social & Family History - Family History Family Medical History: Noncontributory - Tobacco Use Smoking Status *Q: Never Smoker - Caffeine Use Caffeine Use: Reports: None - Recreational Drug Use Recreational Drug Use: No ED ROS GENERAL - Review of Systems Review Of Systems: See Below Constitutional: Denies: Fever, Chills GI/Abdominal: Reports: No Symptoms : Reports: Dysuria, Frequency ED EXAM, RENAL/ - Physical Exam Exam: See Below Exam Limited By: No Limitations General Appearance: Alert, WD/WN, No Apparent Distress Respiratory/Chest: No Respiratory Distress GI/Abdominal: Soft, Tender (Suprapubic tenderness) Back Exam: Normal Inspection, Full Range of Motion, CVA Tenderness (R). No: CVA Tenderness (L) Course - Vital Signs Last Recorded V/S: Last Vital Signs Temp 97.5 F 04/15/18 00:28 Pulse 90 04/15/18 00:28 Resp 16 04/15/18 00:28 BP 132/96 H 04/15/18 00:28 Pulse Ox 97 04/15/18 00:28 - Orders/Labs/Meds Orders: Active Orders 24 hr Category Date Time Status CULTURE URINE [RM] Urgent Lab 04/15/18 00:54 Ordered Labs: Laboratory Tests 04/15/18 Range/Units 00:35 Urine Color Yellow Urine Appearance Cloudy Urine pH 5.0 (4.5-8.0) Ur Specific [place] 1.025 (1.008-1.030) Urine Protein 30 H (NEGATIVE) mg/dL Urine Glucose (UA) Normal (NEGATIVE) mg/dL Urine Ketones Negative (NEGATIVE) mg/dL Urine Occult Blood Large (NEGATIVE) Urine Nitrite Negative (NEGATIVE) Urine Bilirubin Small (NEGATIVE) Urine Urobilinogen Normal (NORMAL) mg/dL Ur Leukocyte Esterase Large (NEGATIVE) Urine RBC >100 H (0-5) Urine WBC >100 H (0-5) Ur Epithelial Cells Few Amorphous Sediment Not seen Urine Bacteria Many Urine Mucus Not seen Meds: Medications Discontinued Medications Generic Name Dose Route Start Last Admin Trade Name Freq PRN Reason Stop Dose Admin Cefdinir 300 mg 04/15/18 00:53 Omnicef PO 04/15/18 00:54 ONETIME ONE Departure - Departure Time of Disposition: 00:59 Disposition: Home, Self-Care 01 Condition: Good Clinical Impression: UTI, Urinary tract infectious disease - Discharge Information Referrals: PCP,None [Primary Care Provider] - Additional Instructions: Take full course of antibiotics, Please followup with your primary care provider in 3-5 days if not better, please call return to the emergency department with worsening of symptoms. - My Orders Last 24 Hours: My Active Orders 04/15/18 00:54 CULTURE URINE [RM] Urgent - Assessment/Plan Last 24 Hours: My Active Orders 04/15/18 00:54 CULTURE URINE [RM] Urgent Plan: Assessment Acuity = acute Site and laterality = urinary tract infection Etiology = probable bacterial cause Manifestations = frequency, dysuria Location of injury = Home Lab values = urinalysis reveals greater than 100 rbc's consistent with hematuria as well as 100 WBCs consistent pyuria, cultures pending Plan Displaced on Omnicef 300 mg by mouth twice a day 7 days extended course because of the back pain follow-up primary care 3-5 days if no improvement This note was dictated using [employer] voice recognition software please call with any questions on syntax or grammar.
== END 2018-04-15 01:05 | disposition home or self-care (01) ==
LOC: JP.ED 23:51
DX: N39.0 Urinary tract infection, site not specified (principal); F41.9 Anxiety disorder, unspecified; F32.9 Major depressive disorder, single episode, unspecified; Z79.899 Other long term (current) drug therapy; Z88.5 Allergy status to narcotic agent; Z88.1 Allergy status to other antibiotic agents; Z88.0 Allergy status to penicillin; Z88.8 Allergy status to other drugs, medicaments and biological substances; Z91.018 Allergy to other foods; Z88.6 Allergy status to analgesic agent
CPT/HCPCS: 81001; 87086; 99284; A9270

== ENCOUNTER 2019-12-12 11:33 | Emergency (ER) | payer MEDICARE, MEDICAID ==
--- NOTE | 2019-12-12 12:17 | EDM.PDOC ---
ED HPI GENERAL MEDICAL PROBLEM - General Chief Complaint: General Stated Complaint: RIGHT EYE AT EYE CLINIC Time Seen by Provider: 12/12/19 12:15 Source of Information: Reports: Patient History Limitations: Reports: No Limitations - History of Present Illness INITIAL COMMENTS - FREE TEXT/NARRATIVE: pt has a long history of carcinoid syndrome. Today she has a severe headache with pain when her ert eye moves. She has facial swelling over the rt face. She has chronic pain since she had the styloid process removed on her left side. She has fentyl patches on at this time for that discomfort. Onset: Gradual, Other ( last few days. ) Duration: Hour(s): Location: Reports: Head, Face, Neck Associated Symptoms: Reports: No Other Symptoms eye Pain Score (Numeric/FACES): 8 - Related Data Allergies Allergy/AdvReac Type Severity Reaction Status Date / Time caffeine Allergy Severe Chest Verified 12/12/19 11:45 Presssure diphenhydramine HCl Allergy Severe Chest Verified 12/12/19 11:45 [From Benadryl] Tightness azithromycin Allergy Hives Verified 12/12/19 11:45 clindamycin Allergy Hives Verified 12/12/19 11:45 codeine Allergy Hives Verified 12/12/19 11:45 doxycycline Allergy Hypertensio Verified 12/12/19 11:45 n etodolac Allergy Muscle Verified 12/12/19 11:45 Aches hydrocodone Allergy Hives Verified 12/12/19 11:45 hydromorphone HCl Allergy Hypertensio Verified 12/12/19 11:45 [From Dilaudid] n ketorolac tromethamine Allergy Headache Verified 12/12/19 11:45 [From Toradol] loratadine [From Claritin] Allergy Cannot Verified 12/12/19 11:45 Remember nitrofurantoin Allergy Airway Verified 12/12/19 11:45 Tightness oxycodone [Oxycodone] Allergy Hives Verified 12/12/19 11:45 Penicillins Allergy Cannot Verified 12/12/19 11:45 Remember sulfite Allergy Cannot Verified 12/12/19 11:45 Remember tomato [Tomato] Allergy Rash Verified 12/12/19 11:45 ondansetron HCl [From Zofran] AdvReac Intermediate Migraine Verified 12/12/19 11 :45 tramadol AdvReac Headache Verified 12/12/19 11:45 navarro jello Allergy Vomiting Uncoded 12/12/19 11:45 Home Meds: Home Meds Ethinyl Estradiol/Drospirenone [Caitlin 28] 1 each PO DAILY 09/26/13 [History] Levothyroxine Sodium [Synthroid] 200 mcg PO DAILY 09/26/13 [History] methocarbamoL [Robaxin] 1,500 mg PO TID PRN 09/26/13 [History] Octreotide [SandoSTATIN LAR] 20 mg IM .Q4W 09/29/13 [History] Propranolol [Inderal] 10 mg PO TID 07/21/14 [History] Albuterol Sulfate [Proair Hfa] 2 puff IH ASDIRECTED PRN 07/09/15 [History] Budesonide/Formoterol [Symbicort 160-4.5 MCG] 2 puff INH BID 07/09/15 [History] EPINEPHrine [Epipen 2-Mike] 0.3 ml IM ASDIRECTED PRN 07/09/15 [History] Lidocaine 5% [Lidoderm 5%] 1 patch TOP DAILY 07/09/15 [History] Omeprazole [Prilosec] 40 mg PO DAILY 07/09/15 [History] Promethazine [Phenergan] 25 mg PO Q6H PRN 07/09/15 [History] Fluocinolone/Emol Comb No.65 [Synalar 0.025% Cream Kit] 1 dose TP BID 03/25/16 [ History] Ethinyl Estradiol/Drospirenone [Crissy 28] 1 tab PO DAILY 12/12/19 [History] Sulfamethoxazole/Trimethoprim [Sulfamethoxazole-Tmp Ds Tablet] 1 tab PO BID [History] fentaNYL [Duragesic] 12 mcg TOP ASDIRECTED 12/12/19 [History] fentaNYL [Fentanyl] 25 mcg TOP ASDIRECTED 12/12/19 [History] Past Medical History HEENT History: Reports: Impaired Vision Cardiovascular History: Reports: Heart Murmur, Other (See Below) Other Cardiovascular History: tachycardia Respiratory History: Reports: Bronchitis, Recurrent, Other (See Below) Other Respiratory History: exercised induced asthma Gastrointestinal History: Reports: Bowel Obstruction Genitourinary History: Reports: UTI, Recurrent COLLABORATIVE PHYSICIAN History: Reports: Polycystic Ovaries Musculoskeletal History: Reports: Other (See Below) Other Musculoskeletal History: left and right arm fracture Neurological History: Reports: Headaches, Chronic, Migraines Psychiatric History: Reports: Anxiety, Depression Endocrine/Metabolic History: Reports: Hypothyroidism Hematologic History: Reports: B12 Deficiency Other Hematologic History: B12 and B1 deficiency Oncologic (Cancer) History: Reports: Other (See Below) Other Oncologic History: 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, 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 Dermatologic History: Reports: Other (See Below) Other Dermatologic History: granuloma anulary - Infectious Disease History Infectious Disease History: Reports: Chicken Pox, Measles - Past Surgical History HEENT Surgical History: Reports: Adenoidectomy, Tonsillectomy GI Surgical History: Reports: Appendectomy, Cholecystectomy, Hernia, Abdominal Musculoskeletal Surgical History: Reports: Arthroscopic Knee Other Musculoskeletal Surgeries/Procedures:: styloidprocess removed Oncologic Surgical History: Reports: Other (See Below) Social & Family History - Family History Family Medical History: Noncontributory - Tobacco Use Smoking Status *Q: Former Smoker Used Tobacco, but Quit: Yes Month/Year Tobacco Last Used: 2002 - Caffeine Use Caffeine Use: Reports: None - Recreational Drug Use Other Recreational Drug Type: medical marijuana ED ROS GENERAL - Review of Systems Review Of Systems: See Below Constitutional: Reports: Chills, Other (pt has facial swelling on the rt side. ) HEENT: Reports: No Symptoms, Other (pt has swelling on the rt cheek area. She is having a atypical headache. ) Respiratory: Reports: No Symptoms Cardiovascular: Reports: No Symptoms Endocrine: Reports: No Symptoms GI/Abdominal: Reports: No Symptoms : Reports: No Symptoms Musculoskeletal: Reports: No Symptoms Skin: Reports: No Symptoms Neurological: Reports: Other ( ununusual rt eye pain. ) ED EXAM, GENERAL - Physical Exam Exam: See Below Free Text/Narrative:: pt was seen in [place] by optmalogy and the eyes were evaluated and found to be quite normal. She was sent here from [place] because of the atypical headache she was having and some swellin on the rt face. She has a long hjistory of a carcinoid syndrome. Exam Limited By: No Limitations General Appearance: Alert, Moderate Distress, Other (pupils are equal and reactive. ) Ears: Normal TMs Nose: Normal Inspection Throat/Mouth: Normal Inspection Head: Atraumatic, Facial Swelling, Other (pt has swelling over the rt fascial area. ) Neck: Other ( rt post cervical area is tender. ) Respiratory/Chest: No Respiratory Distress Cardiovascular: Regular Rate, Rhythm GI/Abdominal: Soft, Non-Tender (Female) Exam: Deferred Rectal (Female) Exam: Deferred Back Exam: Normal Inspection Extremities: Normal Inspection Neurological: Alert, Oriented, Normal Cognition Psychiatric: Anxious Course - Vital Signs Last Recorded V/S: Last Vital Signs Temp 36.6 C 12/12/19 11:51 Pulse 61 12/12/19 11:51 Resp 20 12/12/19 11:51 BP 133/85 12/12/19 11:51 Pulse Ox 97 12/12/19 11:51 - Orders/Labs/Meds Orders: Active Orders 24 hr Category Date Time Status HYDROmorphone [Dilaudid] Med 12/12/19 13:37 Stop Req 0.5 mg IM ONETIME ONE Sodium Chloride 0.9% [Normal Saline] 1,000 ml Med 12/12/19 13:45 Active IV ASDIRECTED Medication Orders Sodium Chloride (Normal Saline) 1,000 mls @ 999 mls/hr IV ASDIRECTED RYLEY Labs: Laboratory Tests 12/12/19 12/12/19 12/12/19 Range/Units 12:20 12:20 12:50 WBC 8.2 (4.5-11.0) K/uL RBC 4.34 (3.30-5.50) M/uL Hgb 12.4 (12.0-15.0) g/dL Hct 39.0 (36.0-48.0) % MCV 90 (80-98) fL MCH 29 (27-31) pg MCHC 32 (32-36) % Plt Count 310 (150-400) K/uL Neut % (Auto) 73 H (36-66) % Lymph % (Auto) 21 L (24-44) % [place] % (Auto) 4 (2-6) % Eos % (Auto) 2 (2-4) % Baso % (Auto) 0 (0-1) % Sodium 136 L (140-148) mmol/L Potassium 4.5 (3.6-5.2) mmol/L Chloride 101 (100-108) mmol/L Carbon Dioxide 26 (21-32) mmol/L Anion Gap 13.5 (5.0-14.0) mmol/L BUN 10 (7-18) mg/dL Creatinine 0.8 (0.6-1.0) mg/dL Est Cr Clr Drug Dosing 95.45 mL/min Estimated GFR (MDRD) > 60 (>60) Glucose 87 (74-106) mg/dL Calcium 8.4 L (8.5-10.1) mg/dL Total Bilirubin 0.4 D (0.2-1.0) mg/dL AST 14 L (15-37) U/L ALT 19 (12-78) U/L Alkaline Phosphatase 80 (46-116) U/L C-Reactive Protein 1.52 H (0.0-0.3) mg/dL Total Protein 6.8 (6.4-8.2) g/dL Albumin 3.1 L (3.4-5.0) g/dL Globulin 3.7 H (2.3-3.5) g/dL Albumin/Globulin Ratio 0.8 L (1.2-2.2) Urine Color Yellow (YELLOW) Urine Appearance Cloudy A (CLEAR) Urine pH 7.0 (5.0-8.0) Ur Specific [place] 1.025 (1.008-1.030) Urine Protein Negative (NEGATIVE) mg/dL Urine Glucose (UA) Negative (NEGATIVE) mg/dL Urine Ketones Negative (NEGATIVE) mg/dL Urine Occult Blood Negative (NEGATIVE) Urine Nitrite Negative (NEGATIVE) Urine Bilirubin Small H (NEGATIVE) Urine Urobilinogen 1.0 (0.2-1.0) EU/dL Ur Leukocyte Esterase Negative (NEGATIVE) Urine RBC 0-5 (0-5) Urine WBC 0-5 (0-5) Ur Epithelial Cells Many Amorphous Sediment Not seen Urine Bacteria Few Urine Mucus Moderate Meds: Medications Generic Name Dose Route Start Last Admin Trade Name Freq PRN Reason Stop Dose Admin Sodium Chloride 1,000 mls @ 999 mls/hr 12/12/19 13:45 Normal Saline IV ASDIRECTED RYLEY Discontinued Medications Generic Name Dose Route Start Last Admin Trade Name Freq PRN Reason Stop Dose Admin Hydromorphone HCl 0.5 mg 12/12/19 13:37 12/12/19 13:41 Dilaudid IM 12/12/19 13:38 Not Given ONETIME ONE Ketorolac Tromethamine 60 mg 12/12/19 13:35 12/12/19 13:41 Toradol IM 12/12/19 13:36 Not Given ONETIME ONE - Re-Assessments/Exams Free Text/Narrative Re-Assessment/Exam: 12/12/19 13:51 cat scn of the head and maxifacial was obtained. This proved to be normal. Her headache was down to a 5. She is allergic to most of the pain meds. She will go home and ice the area and use tylenol and she will return if persistent problems Departure - Departure Time of Disposition: 13:43 Disposition: Home, Self-Care 01 Condition: Fair Clinical Impression: Atypical migraine, Carcinoid syndrome - Discharge Information Referrals: Karie Arriaga PA [Primary Care Provider] - Forms: ED Department Discharge Care Plan Goals: continue same meds, cool pack the facial area, continue the bactrim rtc if this shiould get alot worse. Sepsis Event Note - Evaluation Sepsis Screening Result: No Definite Risk - Focused Exam Vital Signs: Vital Signs Temp Pulse Resp BP Pulse Ox 12/12/19 11:51 36.6 C 61 20 133/85 97 Date Exam was Performed: 12/12/19 Time Exam was Performed: 13:46 - My Orders Last 24 Hours: My Active Orders 12/12/19 13:37 HYDROmorphone [Dilaudid] 0.5 mg IM ONETIME ONE 12/12/19 13:45 Sodium Chloride 0.9% [Normal Saline] 1,000 ml IV ASDIRECTED - Assessment/Plan Last 24 Hours: My Active Orders 12/12/19 13:37 HYDROmorphone [Dilaudid] 0.5 mg IM ONETIME ONE 12/12/19 13:45 Sodium Chloride 0.9% [Normal Saline] 1,000 ml IV ASDIRECTED
[2019-12-12 12:21] VITALS: BP 133/85; PULSE 61
--- NOTE | 2019-12-12 13:31 | CT ---
Head wo Cont, Max Facial Sinus wo Cont CLINICAL HISTORY: Headache in right eye pain COMPARISON: 2013 TECHNIQUE: Transverse scans were obtained from the base of the skull through the vertex without IV contrast on a multislice, multidetector CT scanner. Auto dosage reduction and iterative reconstruction techniques employed. FINDINGS: No focal abnormal parenchymal density is identified. There is no mass effect, hemorrhage, or extraaxial collection. The basal cisterns and sulci over the convexities are normal. The ventricles are normal. IMPRESSION: No acute intracranial findings Head wo Cont, Max Facial Sinus wo Cont CLINICAL HISTORY: Right eye pain FINDINGS: The paranasal sinuses are clear. The periorbital soft tissues are well demarcated. The bony orbits have a normal contour. Optic globes appear normal bilaterally. Extraocular muscles and optic nerves have normal contour. No intraconal or extraconal masses are identified. IMPRESSION: Negative
[2019-12-12] MEDS ORDERED: Ketorolac 60 MG/2 ML SDV IM ONE (13:35)
[2019-12-12] MEDS ORDERED: HYDROmorphone 0.5 MG/0.5 ML Syringe IM ONE (13:37)
[2019-12-12] MEDS ORDERED: Sodium Chloride 0.9% 1,000 ML IV SCH (13:45)
== END 2019-12-12 14:01 | disposition home or self-care (01) ==
LOC: JP.ED 11:33
DX: G43.909 Migraine, unspecified, not intractable, without status migrainosus (principal); E34.0 Carcinoid syndrome; F41.9 Anxiety disorder, unspecified; F32.9 Major depressive disorder, single episode, unspecified; Z79.899 Other long term (current) drug therapy; Z88.5 Allergy status to narcotic agent; Z88.1 Allergy status to other antibiotic agents; Z88.0 Allergy status to penicillin; Z88.6 Allergy status to analgesic agent; Z88.8 Allergy status to other drugs, medicaments and biological substances
CPT/HCPCS: 36415; 70450; 70450-26; 70486; 70486-26; 80053; 81001; 85025; 86140; 99284-25

== ENCOUNTER 2020-10-22 08:22 | Inpatient (IN) | payer MEDICARE, MEDICAID ==
[~2020-10-22 08:22] MED LIST: Bupivacaine 0.5% 50 ML MDV ONE; Dexamethasone 4 MG/ML SDV ONE; Glycopyrrolate 0.2 MG/ML 5 ML MDV ONE; Lidocaine 1% with EPINEPHrine 1:100,000 50 ML MDV ONE; Meropenem 500 MG SDV ONE; Neostigmine Methylsulfate 1 MG/ML 5 ML Syringe ONE; Ondansetron 4 MG/2 ML SDV ONE; Propofol 200 MG/20 ML SDV ONE; Rocuronium 50 MG/5 ML Vial ONE; Succinylcholine 200 MG/10 ML MDV ONE; fentaNYL 250 MCG/5 ML SDV ONE
[2020-10-22] MEDS ORDERED: Acetaminophen 500 MG Tab PO ONE (08:30)
[2020-10-22] MEDS ORDERED: diphenhydrAMINE 50 MG/ML SDV IVPUSH PRN (08:44)
[2020-10-22] MEDS ORDERED: Naloxone 0.4 MG/ML SDV IVPUSH PRN (08:44)
[2020-10-22] MEDS ORDERED: diphenhydrAMINE 25 MG Cap PO PRN (08:44)
[2020-10-22] MEDS ORDERED: Ondansetron 4 MG/2 ML SDV IVPUSH PRN (08:44)
[2020-10-22] MEDS ORDERED: Dextrose 5%-Lactated Ringers 1,000 ML IV SCH (09:00)
[2020-10-22] MEDS ORDERED: Albuterol/Ipratropium 3.0-0.5 MG/3 ML Neb Soln NEB ONE (09:30)
[2020-10-22] MEDS ORDERED: Levofloxacin/Dextrose 5%-Water 500 MG in Premix Bag 1 BAG IV ONE (09:30)
[2020-10-22] MEDS ORDERED: Scopolamine 1.5 MG Transdermal Patch TOP ONE (09:33)
[2020-10-22] MEDS ORDERED: fentaNYL/Normal Saline 600 MCG/30 ML PCA Vial IV PRN (10:00)
[2020-10-22] MEDS ORDERED: fentaNYL 250 MCG/5 ML SDV ONE (10:58)
[2020-10-22] MEDS ORDERED: hydrOXYzine HCL 100 MG/2 ML SDV IM ONE ×2 (12:37→14:43)
[2020-10-22] MEDS: Meperidine 300 MG/30 ML PCA Vial IV PRN ×2 (12:50→21:14)
[2020-10-22] MEDS ORDERED: hydrOXYzine HCL 100 MG/2 ML SDV IM PRN (14:15)
[2020-10-22] MEDS: Dextrose 5%-Lactated Ringers 1,000 ML IV SCH ×2 (14:27→20:35)
[2020-10-22] MEDS ORDERED: Methocarbamol 500 MG Tab PO PRN (14:37)
[2020-10-22] MEDS ORDERED: Promethazine 25 MG Tab PO PRN (14:39)
[2020-10-22] MEDS ORDERED: Meperidine PF 100 MG/ML Syringe IM ONE (14:48)
[2020-10-22] MEDS ORDERED: Albuterol/Ipratropium 3.0-0.5 MG/3 ML Neb Soln INH PRN (15:02)
[2020-10-22] MEDS: [UNRECOGNIZED DRUG - REMARK] TOP SCH ×3 (15:36→23:08)
[2020-10-22] MEDS: [UNRECOGNIZED DRUG - REMARK] TOP SCH ×2 (15:38→23:08)
[2020-10-22] MEDS: Pantoprazole 40 MG Vial IV SCH (17:59)
[2020-10-22] MEDS: Albuterol/Ipratropium 3.0-0.5 MG/3 ML Neb Soln INH SCH (20:36)
[2020-10-22] MEDS: SYMBICORT 160/4.5 INHALER (PTOM) INH SCH (20:37)
[2020-10-22] MEDS: Propranolol 40 MG Tab PO SCH (20:39)
[2020-10-23] MEDS: Dextrose 5%-Lactated Ringers 1,000 ML IV SCH ×3 (02:18→19:48)
[2020-10-23] MEDS: Levothyroxine 100 MCG Tab PO SCH (07:44)
[2020-10-23] MEDS: Albuterol/Ipratropium 3.0-0.5 MG/3 ML Neb Soln INH SCH ×4 (07:44→20:29)
[2020-10-23] MEDS: SYMBICORT 160/4.5 INHALER (PTOM) INH SCH ×2 (07:45→20:30)
[2020-10-23] MEDS: Meperidine 300 MG/30 ML PCA Vial IV PRN ×2 (08:53→18:14)
[2020-10-23] MEDS ORDERED: fentaNYL 12 MCG/HR Transdermal Patch TRDERM ONE (09:00)
[2020-10-23] MEDS: Docusate Sodium 100 MG Cap PO SCH ×3 (09:06→20:29)
[2020-10-23] MEDS: Bisacodyl 5 MG Tab PO SCH ×3 (09:06→20:29)
[2020-10-23] MEDS: Propranolol 40 MG Tab PO SCH ×5 (09:06→20:29)
[2020-10-23] MEDS: [UNRECOGNIZED DRUG - REMARK] TOP SCH ×2 (09:08→20:30)
[2020-10-23] MEDS: [UNRECOGNIZED DRUG - REMARK] TOP SCH ×2 (09:08→20:30)
[2020-10-23] MEDS: Levofloxacin/Dextrose 5%-Water 500 MG in Premix Bag 1 BAG IV SCH (09:13)
[2020-10-23] MEDS: YASMIN PO SCH ×2 (13:08→16:21)
[2020-10-23] MEDS: Pantoprazole 40 MG Vial IV SCH (16:23)
[2020-10-24] MEDS ORDERED: Lactated Ringers 500 ML IV ONE (02:15)
[2020-10-24] MEDS: Meperidine 300 MG/30 ML PCA Vial IV PRN ×2 (07:55→23:32)
[2020-10-24] MEDS: Dextrose 5%-Lactated Ringers 1,000 ML IV SCH ×2 (07:57→20:17)
[2020-10-24] MEDS: Bisacodyl 5 MG Tab PO SCH ×2 (08:46→20:18)
[2020-10-24] MEDS: Albuterol/Ipratropium 3.0-0.5 MG/3 ML Neb Soln INH SCH ×4 (08:46→20:17)
[2020-10-24] MEDS: SYMBICORT 160/4.5 INHALER (PTOM) INH SCH ×2 (08:46→20:17)
[2020-10-24] MEDS: Levothyroxine 100 MCG Tab PO SCH (08:47)
[2020-10-24] MEDS: Docusate Sodium 100 MG Cap PO SCH ×2 (08:47→20:18)
[2020-10-24] MEDS: Propranolol 40 MG Tab PO SCH ×4 (08:47→22:28)
[2020-10-24] MEDS: YASMIN PO SCH (08:57)
[2020-10-24] MEDS: [UNRECOGNIZED DRUG - REMARK] TOP SCH ×2 (08:58→20:59)
[2020-10-24] MEDS: [UNRECOGNIZED DRUG - REMARK] TOP SCH ×2 (08:58→20:59)
[2020-10-24] MEDS: Levofloxacin/Dextrose 5%-Water 500 MG in Premix Bag 1 BAG IV SCH (08:59)
[2020-10-24] MEDS ORDERED: Furosemide 20 MG/2 ML VIAL IVPUSH ONE (15:00)
[2020-10-24] MEDS: Promethazine 25 MG in Sodium Chloride 0.9% 50 ML IV PRN (16:08)
[2020-10-24] MEDS: Pantoprazole 40 MG Tab.CR PO SCH (16:13)
[2020-10-25] MEDS: Dextrose 5%-Lactated Ringers 1,000 ML IV SCH ×2 (06:41→19:12)
[2020-10-25] MEDS ORDERED: Furosemide 20 MG/2 ML VIAL IVPUSH ONE (06:47)
[2020-10-25] MEDS ORDERED: Docusate Sodium 100 MG Cap PO PRN (06:55)
[2020-10-25] MEDS ORDERED: Bisacodyl 5 MG Tab PO PRN (06:55)
[2020-10-25] MEDS: Albuterol/Ipratropium 3.0-0.5 MG/3 ML Neb Soln INH SCH ×4 (07:57→21:43)
[2020-10-25] MEDS: SYMBICORT 160/4.5 INHALER (PTOM) INH SCH ×2 (07:57→21:45)
--- NOTE | 2020-10-25 08:05 | PN ---
DATE OF SERVICE: 10/25/2020 SUBJECTIVE: Leslie has had 2 bowel movements. She is on a full liquid diet. Continues to report pain, on a pain scale of 1 to 10, 8/10 to 9/10. She is due to have her fentanyl patches replaced today. She is using Demerol BUILDING CARPENTER, has had some fluid retention, was given Lasix 10 mg yesterday and this did help. REVIEW OF SYSTEMS: Remainder of review of systems negative for any pertinent positives and negatives. OBJECTIVE: GENERAL: Leslie Rios is a pleasant 35-year-old female, alert and orientated, color very flushed. VITAL SIGNS: TPR is 98.5, 72, 18, blood pressure 119/75. Oral intake 1480. Urine output is 1250. ASHLEY drain put out 35 mL of light pink drainage. HEENT: Negative. NECK: Supple. HEART: Regular rate and rhythm. LUNGS: Clear. ABDOMEN: Dressings dry and intact. Aquacel dressings on. ASHLEY drain as above. Abdominal binder is on. EXTREMITIES: Without peripheral edema. NEUROLOGIC: Intact. PSYCHIATRIC: Mood and affect appropriate. ASSESSMENT: Exploratory laparotomy with: 1. Total abdominal hysterectomy and bilateral salpingo-oophorectomy. 2. Ablation, pelvic and endometrial cysts. 3. Placement of Interceed mesh and omentum into pelvis. 4. Repair of incarcerated incisional hernia. POSTOPERATIVE DIAGNOSES: 1. History of cervical dysplasia. 2. Severe dysmenorrhea. 3. Dyspareunia. 4. Incarcerated incisional hernia. 5. Focal pelvic endometriosis, left pelvic sidewall. DATE OF PROCEDURE: 10/22/2020 PLAN: 1. Remove fentanyl 25 mcg and fentanyl 12 mcg mg patches. 2. Replace fentanyl 25 mcg patch today, 10/25/2020. 3. Replace fentanyl 12 mcg 10/26/2020, remove both patches in 3 days from today. 4. Prior authorization for oral Demerol when the patient goes home, 50 mg every 4 hours p.r.n. pain. 5. Dulcolax and Colace tablets changed from scheduled to p.r.n. 6. Dietary consult. The patient is status post sleeve gastrectomy. 7. Lasix 10 mg IV one time today. 8. Regular diet. 9. Continue use of incentive spirometer and ambulation. We will evaluate p.r.n. or in a.m. Mildred Godwin PA-C /[id number]
[2020-10-25] MEDS: Propranolol 40 MG Tab PO SCH ×3 (08:07→22:50)
[2020-10-25] MEDS: [UNRECOGNIZED DRUG - REMARK] TOP SCH ×2 (08:08→21:43)
[2020-10-25] MEDS: YASMIN PO SCH (08:09)
[2020-10-25] MEDS: [UNRECOGNIZED DRUG - REMARK] TOP SCH ×2 (08:09→21:45)
[2020-10-25] MEDS: Levothyroxine 100 MCG Tab PO SCH ×2 (08:16→09:32)
[2020-10-25] MEDS: Promethazine 25 MG in Sodium Chloride 0.9% 50 ML IV PRN (08:33)
[2020-10-25] MEDS ORDERED: FENTANYL 25 MCG/HR TRDERM SCH (09:00)
--- NOTE | 2020-10-25 09:03 | PN ---
DATE OF SERVICE: 10/24/2020 The patient has been afebrile with stable vital signs. She did have some decreased urine output overnight, received one bolus. This appeared to be satisfactorily. Creatinine is stable at 0.8. Otherwise, labs show no major problems. Plan will be to move up to a full liquid diet, continue bowel stimulation. Her Gautam catheter came out, and we will maximize activity and work with pulmonary toilet. Manoj King MD /[id number]
[2020-10-25] MEDS: Levofloxacin/Dextrose 5%-Water 500 MG in Premix Bag 1 BAG IV SCH (10:45)
--- NOTE | 2020-10-25 12:10 | PN ---
DATE OF SERVICE: 10/23/2020 The patient has been afebrile with stable vital signs. She had a little bit of vaginal bleeding, but this appears to be minimal. Otherwise, pain control has become more adequate given her Demerol GREEN CHAINER was dosed up somewhat and we will add a second fentanyl patch today per her usual routine. Will start bowel stimulation today with Gautam catheter in today, begin a full liquid diet. Manoj King MD /[id number]
[2020-10-25] MEDS: Pantoprazole 40 MG Tab.CR PO SCH (15:48)
[2020-10-25] MEDS: Nystatin Susp 100,000 Unit/ML 5 ML UD Cup PO SCH ×2 (15:48→21:46)
[2020-10-25] MEDS: Meperidine 300 MG/30 ML PCA Vial IV PRN (16:26)
[2020-10-26] MEDS: Nystatin Susp 100,000 Unit/ML 5 ML UD Cup PO SCH ×4 (05:23→22:06)
[2020-10-26] MEDS: SYMBICORT 160/4.5 INHALER (PTOM) INH SCH ×2 (07:41→20:19)
[2020-10-26] MEDS: Albuterol/Ipratropium 3.0-0.5 MG/3 ML Neb Soln INH SCH ×4 (07:41→20:19)
[2020-10-26] MEDS ORDERED: Dextrose 5%-Lactated Ringers 1,000 ML IV SCH (07:45)
--- NOTE | 2020-10-26 07:46 | PN ---
DATE OF SERVICE: 10/26/2020 SUBJECTIVE: The pain has been controlled with Demerol INCLUSION TEACHER. Oral intake 1820. Output 1999. ASHLEY drain put out 35 mL of a light pink drainage. She has been up ambulating. Afebrile. REVIEW OF SYSTEMS: Remainder of review of systems negative for any pertinent positives or negatives. OBJECTIVE: GENERAL: Lelsie Rios is a pleasant 35-year-old female. She is alert and orientated. Color remains flushed. VITAL SIGNS: TPR is 99.2, 73, 16, and blood pressure 106/48. HEENT: Negative. NECK: Supple. HEART: Regular rate and rhythm. LUNGS: Clear. ABDOMEN: Dressing dry and intact. Aquacel dressing on. Abdominal binder is on. ASHLEY drain as above. EXTREMITIES: Without peripheral edema. ASSESSMENT: Exploratory laparotomy with; 1. Total abdominal hysterectomy and bilateral salpingo-oophorectomy. 2. Ablation of pelvic and endometrial cyst. 3. Placement of Interceed mesh. 4. Repair of incarcerated incisional hernia. POSTOPERATIVE DIAGNOSES: 1. Cervical dysplasia. 2. Severe dysmenorrhea. 3. Dyspareunia. 4. Incarcerated incisional hernia. 5. Focal pelvic endometriosis, left pelvic sidewall. DATE OF PROCEDURE: 10/22/2020. SURGEON: Manoj King MD. PLAN: 1. Discontinue ASHLEY drain. 2. IV to TKO. 3. Continue INCLUSION TEACHER because oral Demerol is not available. 4. We will check with another pharmacy to see if oral Demerol is available. 5. Plan to discharge in the a.m. 6. Continue use of incentive spirometer and ambulation. 7. We will evaluate p.r.n. and in the a.m. Mildred Godwin PA-C /[id number]
[2020-10-26] MEDS ORDERED: FENTANYL 12 MCG/HR TRDERM SCH (09:00)
[2020-10-26] MEDS: Propranolol 40 MG Tab PO SCH ×3 (09:40→22:28)
[2020-10-26] MEDS: Levothyroxine 100 MCG Tab PO SCH (09:41)
[2020-10-26] MEDS: [UNRECOGNIZED DRUG - REMARK] TOP SCH ×2 (09:41→20:19)
[2020-10-26] MEDS: [UNRECOGNIZED DRUG - REMARK] TOP SCH ×2 (09:41→20:19)
[2020-10-26] MEDS: YASMIN PO SCH (09:43)
[2020-10-26] MEDS: Levofloxacin/Dextrose 5%-Water 500 MG in Premix Bag 1 BAG IV SCH (09:46)
[2020-10-26] MEDS: Pantoprazole 40 MG Tab.CR PO SCH (16:54)
[2020-10-26] MEDS: Meperidine 300 MG/30 ML PCA Vial IV PRN (20:16)
[2020-10-27] MEDS: Nystatin Susp 100,000 Unit/ML 5 ML UD Cup PO SCH (05:40)
[2020-10-27 07:05] VITALS: BP 117/62; PULSE 69
[2020-10-27] MEDS: SYMBICORT 160/4.5 INHALER (PTOM) INH SCH (07:12)
[2020-10-27] MEDS: Albuterol/Ipratropium 3.0-0.5 MG/3 ML Neb Soln INH SCH (07:12)
[2020-10-27] MEDS ORDERED: Morphine 15 MG Tab PO PRN (07:42)
--- NOTE | 2020-10-27 09:55 | DISCH ---
ADMISSION DIAGNOSES: 1. Cervical dysplasia. 2. Severe dysmenorrhea. 3. Dyspareunia. 4. Incarcerated incisional hernia. DISCHARGE DIAGNOSES: Exploratory laparotomy with: 1. Total abdominal hysterectomy and bilateral salpingo-oophorectomy. 2. Ablation of pelvic and endometrial cysts. 3. Placement of Interceed mesh. 4. Repair of incarcerated incisional hernia. POSTOPERATIVE DIAGNOSES: 1. Cervical dysplasia. 2. Severe dysmenorrhea. 3. Dyspareunia. 4. Incarcerated incisional hernia. 5. Focal pelvic endometriosis, left pelvic sidewall. Date of procedure: 10/22/2020. Surgeon: Manoj King MD. PROBLEM LIST: 1. Polycystic ovary syndrome. 2. Asthma. 3. Carcinoid tumor. 4. Laparoscopic sleeve gastrectomy. HISTORY: Leslie Rios is a 35-year-old female with an incisional hernia and chronic pelvic pain as stated above. After preoperative evaluation and discussion of possible risks and possible complications, she wished to proceed with surgical procedure. HOSPITAL COURSE: Leslie had her surgery on 10/22/2020. She had no operative complications. Pain was controlled with the Demerol LOZENGE MAKER. On postoperative day #2, urine output was decreased overnight. Creatinine was stable. She was given bowel stimulation. Diet increased to a full liquid diet. Her catheter was removed. On postoperative day #3, fentanyl patches were removed per her protocol. Continued with the LOZENGE MAKER. Unable to obtain oral Demerol. In hospital, she did have a bowel movement, dietary consult, and was given Lasix for fluid retention. On postop day #4, ASHLEY drain was discontinued. IV was changed to TKO. Leslie was ready to be discharged on 10/27/2020 with no complications. She was started on oral morphine. Vital signs stable, afebrile, up ambulating, and pain was controlled. She has also had frequent bowel movements and tolerating a regular diet. Remainder of review of systems negative for any pertinent positives or negatives, and she was able to be discharged to home. DISPOSITION: Discharged to home. PHYSICAL EXAMINATION: GENERAL: Leslie Rios is a pleasant 35-year-old female. VITAL SIGNS: Height is 5 feet 7 inches, weight is 200 pounds. TPR is 98.5, 69, 18, blood pressure 117/62. HEENT: Negative. NECK: Supple. HEART: Regular rate and rhythm. LUNGS: Clear. ABDOMEN: Aquacel dressings on. It is clean and dry. This will be replaced prior to discharge. Her abdominal binder is on. EXTREMITIES: Without peripheral edema. DISPOSITION: Discharged to home. CONDITION: Stable and improving. FOLLOWUP APPOINTMENT: Manoj King MD, at [facility] on 11/03/2020 at 8 a.m. HOME MEDICATIONS: 1. Morphine 15 mg oral q.4 hours p.r.n. pain, #42. 2. She is to resume home medications of: a. Albuterol ProAir inhaler 2 puffs q.6 hours p.r.n. shortness of breath. b. Symbicort 160/4.5 mcg 2 puffs b.i.d. c. Diclofenac 3%, hyaluronan 2%, niacin 4% 4 g topical 4 times a day to affected area. d. EpiPen 0.3 IM as needed for anaphylactic shock. e. Crissy 28-day 1 tablet daily. f. Fluocinolone cream 0.025% 1 dose topical twice a day. g. Nizoral 2% cream 1 applicator topical twice a day. h. Synthroid 100 mcg oral daily. i. Lidoderm 5% 1 patch topical daily. j. Medical cannabis 1 applicator topical as directed. k. Sandostatin 20 IM every 4 weeks. l. Phenergan 25 mg every 6 hours p.r.n. nausea. m. Inderal 10 mg oral 3 times a day. n. Sulfa/trimethoprim DS 1 twice daily. o. Triamcinolone acetonide cream 0.1% 1 applicator twice daily. p. Soma 350 mg oral 3 times a day p.r.n. muscle spasms. q. Fentanyl/Duragesic patch 25 mcg topical every 3 days. r. Fentanyl 12 mcg topical, she applies the 25 mcg on day 3, the next day fentanyl 12 mcg and removes both patches in 3 days. s. Hydroxyzine 25 mg 4 times a day p.r.n. itching. t. Robaxin 1500 mg oral 3 times a day p.r.n. pain. DIET: Usual diet as tolerated. Drink 8 to 10 glasses of water a day. ACTIVITY AFTER DISCHARGE: No lifting over 10 pounds for 6 weeks. OTHER ACTIVITY: Walk 6 times daily inside your home. Driving: Do not drive for 1 week and while on narcotic medication. Shower/bathing: May shower. DISCHARGE INSTRUCTIONS: Notify provider if any fever, increased pain, swelling, redness, drainage, nausea, or vomiting. Wound incision care: Keep site clean and dry. Wear abdominal binder for 6 weeks and then as tolerated. Take off Aquacel dressing in 3 days on 10/30/2020. Use incentive spirometer 10 times every hour while awake for 1 week. /[id number]
--- NOTE | 2020-11-02 10:48 | OR ---
DATE OF PROCEDURE: 10/22/2020 SURGEON: Manoj King MD PREOPERATIVE DIAGNOSES: 1. Severe dysmenorrhea, dyspareunia, and history of cervical dysplasia. 2. Incisional hernia. POSTOPERATIVE DIAGNOSES: 1. Severe dysmenorrhea, dyspareunia, and history of cervical dysplasia. 2. Incarcerated incisional hernia. 3. Focal pelvic endometriosis along the left pelvic sidewall. OPERATIVE PROCEDURES: Exploratory laparotomy with: 1. Total abdominal hysterectomy and bilateral salpingo-oophorectomy (67315). 2. Ablation of pelvic endometriosis (14221). 3. Placement of Interceed mesh in omentum and to pelvis to limit adhesion formation between those surfaces on the adjacent viscera (82458). 4. Repair of incarcerated incisional hernia (51839). ANESTHESIA: General. REVIEW ENGINEER: Mildred Godwin PA-C INDICATIONS FOR PROCEDURE: This is a 35-year-old with severe dysmenorrhea, dyspareunia, and history of cervical dysplasia. She was advised to undergo hysterectomy per the Gynecologic Service, but they deferred given her anticipated relatively hostile intraabdominal presentation given her previous surgeries, and the plan is to proceed with open total abdominal hysterectomy and bilateral salpingo-oophorectomy. The patient wishes both ovaries removed. She is aware this will result in premature menopausal symptoms and may require some medical management over time. She also has what appears to be an incisional hernia located above the umbilicus. The plan will be to proceed with repair of that as well. This likely will not be undertaken with mesh given the somewhat contaminated nature of the hysterectomy. Potential risks of the procedure per se including bleeding, infection, injury to underlying viscera, and problems with hernia recurring as well as possible cardiopulmonary, septic, or hemorrhagic complications leading to were discussed. She is aware that there may still be some pelvic discomfort following the procedure and wishes to proceed. DETAILS OF PROCEDURE: The patient was taken to the operating room and placed in a supine position. A Gautam catheter was inserted, and abdominal-vaginal prep was performed. A lower midline incision from the umbilicus down to the pubis was then made, carried down through the skin and subcutaneous tissue, and the peritoneal cavity entered. Some adhesions between the small bowel, sigmoid colon, omentum, and abdominal and pelvic roblero were then taken down with cautery and blunt dissection. This eventually led to freeing up of the uterus satisfactorily. The uterus itself was not overly enlarged and contained what appeared to be some small fibroids. On both sides, the infundibulopelvic and broad ligament were divided with CRISTELA justin. Peritoneal reflection of bladder around the uterus was then divided and reflected downwards onto the upper vagina. Cardinal ligaments were then also taken down on each side then with CRISTELA justin. The uterosacral ligament was then sutured on each side with #1 Vicryl stitch, and the vaginal cuff then opened adjacent to the cervix and divided circumferentially delivering the uterus both tubes and ovaries from the field. Using the uterosacral ligament stitches, these were then used to close the vaginal opening midline where they were tied. The pelvis was then irrigated with meropenem-containing saline solution. The patient was noted to have 2 focal areas of endometriosis on the left pelvic sidewall. These were ablated with cautery, and at that point, attention was taken to the incisional hernia. This again was located above the umbilicus. Using a combination of cautery dissection and blunt dissection and some justin, adhesions between the hernia and the underlying viscera were taken down. The hernia was then repaired from within using a #2 Vicryl stitch. This was taken down to the area of the umbilicus and then subsequently used to continue the fascial closure below the umbilicus. Prior to closure, a Pranay-Hallman drain was then placed in the left lateral abdominal wall and from there down on to the pelvis. Some Interceed mesh was then placed across the vaginal cuff closure, and the omentum mobilized down in that area as well to limit recurrent adhesion formation between the viscera and the pelvic and abdominal wall. The midline fascia was then approximated beginning from the suprapubic area upward with the stitch. Bilateral transversus abdominis plane blocks were then placed at that point, and the abdomen was then irrigated with some additional meropenem-containing saline solution. Closing the subcutaneous tissue and fascial layer with 2 layers of 3-0 and 4-0 Vicryl stitch deep and justin for the skin. Dressing was applied. The patient was taken to the recovery room in satisfactory condition. Physician assistant food service director, Mildred Godwin PA-C, played an essential role in assisting in this case, helping to position the patient, retract structures as needed as well as suturing and cutting sutures when indicated. Her presence improved patient safety and decreased operative time. Manoj King MD /[id number]
== END 2020-10-27 10:40 | disposition home or self-care (01) | DRG 742 ==
LOC: JP.MS 08:22 → JP.SDS 08:22 → EDSTATUS 09:45 → JP.MS 12:45
PROVIDERS: ADMIT Surgery; ATTEND Surgery
PROC: 0UT90ZZ Resection of Uterus, Open Approach (ICD-10-PCS; principal; 2020-10-22)
PROC: 0UB20ZZ Excision of Bilateral Ovaries, Open Approach (ICD-10-PCS; 2020-10-22)
PROC: 0UB70ZZ Excision of Bilateral Fallopian Tubes, Open Approach (ICD-10-PCS; 2020-10-22)
PROC: 0U5B0ZZ Destruction of Endometrium, Open Approach (ICD-10-PCS; 2020-10-22)
PROC: XW033N5 Introduction of Meropenem-vaborbactam Anti-infective into Peripheral Vein, Percutaneous Approach, New Technology Group 5 (ICD-10-PCS; 2020-10-22)
PROC: 0WQF0ZZ Repair Abdominal Wall, Open Approach (ICD-10-PCS; 2020-10-22)
PROC: 3E0M05Z Introduction of Adhesion Barrier into Peritoneal Cavity, Open Approach (ICD-10-PCS; 2020-10-22)
DX: N87.9 Dysplasia of cervix uteri, unspecified (principal); K43.0 Incisional hernia with obstruction, without gangrene; N94.6 Dysmenorrhea, unspecified; N80.3 Endometriosis of pelvic peritoneum; E28.2 Polycystic ovarian syndrome; J45.909 Unspecified asthma, uncomplicated; N94.10 Unspecified dyspareunia; E61.1 Iron deficiency; D3A.00 Benign carcinoid tumor of unspecified site; I10 Essential (primary) hypertension; K21.9 Gastro-esophageal reflux disease without esophagitis; E03.9 Hypothyroidism, unspecified; F32.9 Major depressive disorder, single episode, unspecified; E53.8 Deficiency of other specified B group vitamins; E66.01 Morbid (severe) obesity due to excess calories; Z88.0 Allergy status to penicillin; Z88.8 Allergy status to other drugs, medicaments and biological substances; Z88.5 Allergy status to narcotic agent; Z88.1 Allergy status to other antibiotic agents; Z88.2 Allergy status to sulfonamides; Z88.6 Allergy status to analgesic agent; Z79.890 Hormone replacement therapy; Z79.899 Other long term (current) drug therapy; Z79.891 Long term (current) use of opiate analgesic; Z87.440 Personal history of urinary (tract) infections; Z90.49 Acquired absence of other specified parts of digestive tract; Z87.891 Personal history of nicotine dependence; Z68.31 Body mass index [BMI] 31.0-31.9, adult
CPT/HCPCS: 36415; 80053; 81025; 82728; 83735; 84100; 85027; 88307; 94640; 94762; A9270-GY; C9113; J0171; J0330; J1100; J1940; J1956; J2020; J2175; J2185; J2405; J2550; J2704; J2710; J2795; J3010; J3410; J3490; J7120; J7121; J7620-GY

== ENCOUNTER 2021-02-09 14:27 | Emergency (ER) | payer MEDICARE, MEDICAID ==
--- NOTE | 2021-02-09 16:04 | EDM.PDOC ---
ED HPI GENERAL MEDICAL PROBLEM - General Chief Complaint: Neurological Problem Stated Complaint: SEIZURES POST-OP Time Seen by Provider: 02/09/21 15:40 Source of Information: Reports: Patient, Old Records, RN History Limitations: Reports: No Limitations - History of Present Illness INITIAL COMMENTS - FREE TEXT/NARRATIVE: 35 yo female recently had surgery on her abdomen by Dr. King for a recurrent hernia. She had mesh placed. She has a hx of allergy or intolerance of many meds. She was placed on Demerol this time due to her many allergies. Starting last night she's been experiencing intermittent sudden tightening of her abdominal muscles, an episode of her R arm jumping and some weakness of her L hand. She also mentions that she has numbness of the L hip, but wonders if this might be from her "nerve block". She called her primary and was told to go to the ER. Had a similar, less dramatic SE from a pain med in the past. Onset: Today Onset Date: 02/09/21 Onset Time: 00:00 Duration: Hour(s):, Waxing/Waning Location: Reports: Abdomen, Upper Extremity, Left, Upper Extremity, Right Quality: Reports: Other (numbness) Severity: Moderate Improves with: Reports: None Worsens with: Reports: Other (? sustained Demerol use) Context: Reports: Other (see HPI) Associated Symptoms: Reports: No Other Symptoms Treatments PRESS OFFICER: Reports: Other (see below) (Demerol on hold since onset of sx's) - Related Data Allergies Allergy/AdvReac Type Severity Reaction Status Date / Time azithromycin Allergy Severe Hives Verified 02/09/21 15:25 caffeine Allergy Severe Chest Verified 02/09/21 15:25 Presssure clindamycin Allergy Severe Hives Verified 02/09/21 15:25 codeine Allergy Severe Hives Verified 02/09/21 15:25 diphenhydramine HCl Allergy Severe Chest Verified 02/09/21 15:25 [From Benadryl] Tightness hydrocodone Allergy Severe Hives Verified 02/09/21 15:25 nitrofurantoin Allergy Severe Airway Verified 02/09/21 15:25 Tightness oxycodone [Oxycodone] Allergy Severe Hives Verified 02/09/21 15:25 tomato [Tomato] Allergy Severe Rash Verified 02/09/21 15:25 doxycycline Allergy Intermediate Hypertensio Verified 02/09/21 15:25 n hydromorphone HCl Allergy Intermediate Hypertensio Verified 02/09/21 15:25 [From Dilaudid] n morphine Allergy Intermediate Hallucinati Verified 02/09/21 15:25 ons amoxicillin Allergy Unknown Other Verified 02/09/21 15:25 cyclobenzaprine Allergy Unknown Other Verified 02/09/21 15:25 cyclosporine [From Restasis] Allergy Unknown Other Verified 02/09/21 15:25 loratadine [From Claritin] Allergy Unknown Cannot Verified 02/09/21 15:25 Remember Penicillins Allergy Unknown Cannot Verified 02/09/21 15:25 Remember prednisone Allergy Unknown Other Verified 02/09/21 15:25 sertraline Allergy Unknown Other Verified 02/09/21 15:25 sulfite Allergy Unknown Cannot Verified 02/09/21 15:25 Remember tetrahydrozoline Allergy Unknown Other Verified 02/09/21 15:25 etodolac AdvReac Intermediate Muscle Verified 02/09/21 15:25 Aches ondansetron HCl [From Zofran] AdvReac Intermediate Migraine Verified 02/09/21 15:25 tramadol AdvReac Intermediate Headache Verified 02/09/21 15:25 ketorolac tromethamine AdvReac Mild Headache Verified 02/09/21 15:25 [From Toradol] navarro jello Allergy Mild Vomiting Uncoded 02/09/21 15:25 malt Allergy Unknown Other Uncoded 02/09/21 15:25 seratonin inducing Allergy Other Uncoded 02/03/21 07:28 medications wine Allergy Other Uncoded 02/03/21 07:28 Home Meds: Home Meds Levothyroxine Sodium [Synthroid] 175 mcg PO DAILY 09/26/13 [History] methocarbamoL [Robaxin] 1,500 mg PO TID PRN 09/26/13 [History] Octreotide [SandoSTATIN LAR] 20 mg IM ASDIRECTED 09/29/13 [History] Propranolol [Inderal] 10 mg PO TID 07/21/14 [History] Albuterol Sulfate [Proair Hfa] 2 puff IH ASDIRECTED PRN 07/09/15 [History] Budesonide/Formoterol [Symbicort 160-4.5 MCG] 2 puff INH BID PRN 07/09/15 [History] EPINEPHrine [Epipen 2-Mike] 0.3 ml IM ASDIRECTED PRN 07/09/15 [History] Lidocaine 5% [Lidoderm 5%] 1 patch TOP DAILY PRN 07/09/15 [History] Promethazine [Phenergan] 25 mg PO Q6H PRN 07/09/15 [History] Fluocinolone/Emol Comb No.65 [Synalar 0.025% Cream Kit] 1 dose TP BID PRN 03/25/16 [History] Sulfamethoxazole/Trimethoprim [Sulfamethoxazole-Tmp Ds Tablet] 1 tab PO BID PRN 12/12/19 [History] fentaNYL [Duragesic] 12 mcg TOP ASDIRECTED 12/12/19 [History] fentaNYL [Fentanyl] 25 mcg TOP ASDIRECTED 12/12/19 [History] Ketoconazole [Nizoral 2% Crm] 1 applic TOP BID PRN 10/19/20 [History] Medical Cannabis 1 applic TOP ASDIRECTED 10/19/20 [History] Triamcinolone Acetonide [Triamcinolone Acetonide 0.1% Crm] 1 applic TOP BID PRN 10/19/20 [History] carisoprodoL [Soma] 350 mg PO TID PRN 10/19/20 [History] Hydrocortisone [Hydrocortisone 0.5% Crm] 1 dose TOP BID 02/03/21 [History] Meperidine HCl [Demerol] 50 mg PO Q4HR PRN 02/09/21 [History] Past Medical History HEENT History: Reports: Impaired Vision Other HEENT History: wears glasses Cardiovascular History: Reports: Heart Murmur, Other (See Below) Other Cardiovascular History: tachycardia Respiratory History: Reports: Bronchitis, Recurrent, Other (See Below) Other Respiratory History: exercised induced asthma Gastrointestinal History: Reports: Bowel Obstruction, Chronic Diarrhea, GERD, Hemorrhoids Genitourinary History: Reports: UTI, Recurrent PRACTICE MANAGER History: Reports: Polycystic Ovaries Musculoskeletal History: Reports: Other (See Below) Other Musculoskeletal History: left and right arm fracture Neurological History: Reports: Headaches, Chronic, Migraines, Other (See Below) Other Neuro History: lymph node removed from right neck Psychiatric History: Reports: Anxiety, Depression Endocrine/Metabolic History: Reports: Hypothyroidism, Obesity/BMI 30+ Hematologic History: Reports: B12 Deficiency Other Hematologic History: B12 and B1 deficiency Oncologic (Cancer) History: Reports: Other (See Below) Other Oncologic History: 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, 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 Dermatologic History: Reports: Other (See Below) Other Dermatologic History: granuloma anulary - Infectious Disease History Infectious Disease History: Reports: Chicken Pox, Measles, Mononucleosis - Past Surgical History HEENT Surgical History: Reports: Adenoidectomy, Tonsillectomy Cardiovascular Surgical History: Reports: None Respiratory Surgical History: Reports: None GI Surgical History: Reports: Appendectomy, Bariatric Procedure, Cholecystectomy, Colonoscopy, EGD, Hernia, Abdominal, Hernia Repair/Other Other GI Surgeries/Procedures: gastric sleeve, with removal of part of colon the ilium removed Female Surgical History: Reports: Cervical Cryotherapy, Hysterectomy, Salpingo-Oophorectomy Endocrine Surgical History: Reports: None Neurological Surgical History: Reports: None Musculoskeletal Surgical History: Reports: Arthroscopic Knee Other Musculoskeletal Surgeries/Procedures:: styloidprocess removed Oncologic Surgical History: Reports: Other (See Below) Other Oncologic Surgeries/Procedures: laprascopic removal of carcinoid appendix Dermatological Surgical History: Reports: Skin Biopsy Social & Family History - Family History Family Medical History: No Pertinent Family History Cardiac: Reports: Hypertension : Reports: Renal Calculus Musculoskeletal: Reports: Arthritis Neurological: Reports: Dementia Endocrine/Metabolic: Reports: Diabetes, Type I Hematologic: Reports: Anemia Oncologic: Reports: Breast - Tobacco Use Tobacco Use Status *Q: Never Tobacco User - Caffeine Use Caffeine Use: Reports: None - Recreational Drug Use Recreational Drug Use: No ED ROS GENERAL - Review of Systems Review Of Systems: See Below Constitutional: Reports: No Symptoms HEENT: Reports: No Symptoms Respiratory: Reports: No Symptoms Cardiovascular: Reports: No Symptoms GI/Abdominal: Reports: No Symptoms : Reports: No Symptoms Musculoskeletal: Reports: No Symptoms Skin: Reports: Wound (surgical wound on abdomen) Neurological: Reports: Numbness (L hip), Tremors (R arm/hand), Weakness (L hand) ED EXAM, NEURO - Physical Exam Exam: See Below Exam Limited By: No Limitations General Appearance: Alert, WD/WN, No Apparent Distress Eye Exam: Bilateral Eye: Normal Inspection Ears: Normal External Exam, Normal Canal, Hearing Grossly Normal Nose: Normal Inspection, No Blood Throat/Mouth: Normal Inspection, Normal Lips, Normal Oropharynx, Normal Voice, No Airway Compromise Head Exam: Atraumatic, Normocephalic Neck: Normal Inspection Respiratory/Chest: No Respiratory Distress, Lungs Clear, Normal Breath Sounds, No Accessory Muscle Use Cardiovascular: Regular Rate, Rhythm, No Edema GI/Abdominal: Normal Bowel Sounds, Soft, No Distention, Other (surgical wound present). No: Distended Neurological: Alert, Oriented x 3, Other (L hand grasp slightly weak) DTR: 0: Bicep (L) Extremities: Normal Inspection, Normal Range of Motion, Non-Tender, No Pedal Edema Psychiatric: Normal Affect, Normal Mood Skin Exam: Warm, Dry, Normal Color, No Rash, Wound/Incision (sugical wound without redness or drainage. ) Course - Vital Signs Last Recorded V/S: Last Vital Signs Temp 36.4 C 02/09/21 15:40 Pulse 73 02/09/21 15:40 Resp 16 02/09/21 15:40 BP 114/74 02/09/21 15:40 Pulse Ox 97 02/09/21 15:40 Departure - Departure Time of Disposition: 16:20 Disposition: Home, Self-Care 01 Condition: Fair Clinical Impression: Medication side effect - Discharge Information *PRESCRIPTION DRUG MONITORING PROGRAM REVIEWED*: No *COPY OF PRESCRIPTION DRUG MONITORING REPORT IN PATIENT TIFFANIE: No Referrals: Karie Arriaga PA [Primary Care Provider] - Additional Instructions: Contact your provider regarding continued use of Fentanyl. Do not resume the Demerol. Return as needed. Sepsis Event Note (ED) - Evaluation Sepsis Screening Result: No Definite Risk - Focused Exam Vital Signs: Vital Signs Temp Pulse Resp BP Pulse Ox 02/09/21 15:40 36.4 C 73 16 114/74 97 02/09/21 15:12 36.4 C 77 16 107/54 L 95
[2021-02-09] MEDS ORDERED: fentaNYL 12 MCG/HR Transdermal Patch TRDERM SCH (16:15)
[2021-02-09 16:38] VITALS: BP 109/73; PULSE 66
== END 2021-02-09 16:49 | disposition home or self-care (01) ==
LOC: JP.ED 14:27
DX: M62.81 Muscle weakness (generalized) (principal); R20.0 Anesthesia of skin; T40.2X5A Adverse effect of other opioids, initial encounter; E03.9 Hypothyroidism, unspecified; E66.9 Obesity, unspecified; Z68.31 Body mass index [BMI] 31.0-31.9, adult; Z88.1 Allergy status to other antibiotic agents; Z88.8 Allergy status to other drugs, medicaments and biological substances; Z88.5 Allergy status to narcotic agent; Z91.018 Allergy to other foods; Z88.0 Allergy status to penicillin; Z88.6 Allergy status to analgesic agent; Z79.899 Other long term (current) drug therapy
CPT/HCPCS: 99283

== ENCOUNTER → 2022-08-02 | Day surgery (SDC) | payer MEDICARE, MEDICAID ==
[~2022-08-02] MED LIST changes: +Bupivacaine 0.5% 30 ML SDV ONE; -Bupivacaine 0.5% 50 ML MDV ONE; +Lactated Ringers 1,000 ML IV SCH; -Lidocaine 1% with EPINEPHrine 1:100,000 50 ML MDV ONE; -Meropenem 500 MG SDV ONE; +Nozin Nasal Sanitizer NASBOTH ONE; +ceFAZolin 1 GM in Premix Bag 1 BAG IV ONE; +fentaNYL 50 MCG/ML SDV IVPUSH ONE; +traMADol 50 MG Tab ONE; +traMADol 50 MG Tab PO ONE
[2022-08-02 06:18] LABS: ESTIMATED GFR 97 mL/min (>60)
[2022-08-02 09:16] VITALS: BP 120/70; PULSE 49
== END ==
LOC: JP.SDS 05:34
PROVIDERS: ATTEND Specialist
DX: M22.42 Chondromalacia patellae, left knee (principal); I10 Essential (primary) hypertension; F41.9 Anxiety disorder, unspecified; F32.A Depression, unspecified; J45.909 Unspecified asthma, uncomplicated; K21.9 Gastro-esophageal reflux disease without esophagitis; E03.9 Hypothyroidism, unspecified; D50.9 Iron deficiency anemia, unspecified; E55.9 Vitamin D deficiency, unspecified; Z90.49 Acquired absence of other specified parts of digestive tract; Z98.890 Other specified postprocedural states; Z79.899 Other long term (current) drug therapy; Z87.891 Personal history of nicotine dependence; Z88.0 Allergy status to penicillin; Z88.8 Allergy status to other drugs, medicaments and biological substances; Z88.5 Allergy status to narcotic agent; Z88.6 Allergy status to analgesic agent; Z88.2 Allergy status to sulfonamides
CPT/HCPCS: 29877; 36415; 80053; 85025; A9270; J0330; J0690; J1100; J2704; J2710; J3010; J3490; J7120; U0002; J2405

== ENCOUNTER 2022-11-27 06:02 | Day surgery (SDC) | payer MEDICARE, MEDICAID ==
[2022-11-27] MEDS ORDERED: Lactated Ringers 1,000 ML IV SCH (06:30)
[2022-11-27 06:46] LABS: ESTIMATED GFR 97 mL/min (>60)
[2022-11-27] MEDS ORDERED: Nozin Nasal Sanitizer NASBOTH ONE (07:00)
[2022-11-27] MEDS ORDERED: Bupivacaine 0.5% 30 ML SDV ONE (07:01)
[2022-11-27] MEDS ORDERED: fentaNYL 250 MCG/5 ML SDV ONE (07:38)
[2022-11-27] MEDS ORDERED: Propofol 200 MG/20 ML SDV ONE (07:39)
[2022-11-27] MEDS ORDERED: Dexamethasone 4 MG/ML SDV ONE (07:39)
[2022-11-27] MEDS ORDERED: Neostigmine Methylsulfate 1 MG/ML 5 ML Syringe ONE (07:39)
[2022-11-27] MEDS ORDERED: Succinylcholine 200 MG/10 ML MDV ONE (07:39)
[2022-11-27] MEDS ORDERED: Glycopyrrolate 0.2 MG/ML 5 ML MDV ONE (07:39)
[2022-11-27] MEDS ORDERED: Rocuronium 50 MG/5 ML Vial ONE (07:39)
[2022-11-27] MEDS ORDERED: ceFAZolin 1 GM in Premix Bag 1 BAG IV ONE (08:00)
[2022-11-27] MEDS ORDERED: traMADol 50 MG Tab PO ONE (09:40)
[2022-11-27 10:31] VITALS: BP 113/73; PULSE 70
== END 2022-11-27 10:45 | disposition home or self-care (01) ==
LOC: JP.SDS 06:02
PROVIDERS: ATTEND Specialist
DX: M22.42 Chondromalacia patellae, left knee (principal); M22.2X1 Patellofemoral disorders, right knee; I10 Essential (primary) hypertension; F41.9 Anxiety disorder, unspecified; F32.A Depression, unspecified; K21.9 Gastro-esophageal reflux disease without esophagitis; J45.909 Unspecified asthma, uncomplicated; Z79.899 Other long term (current) drug therapy; Z88.5 Allergy status to narcotic agent; Z88.6 Allergy status to analgesic agent; Z88.0 Allergy status to penicillin; Z88.1 Allergy status to other antibiotic agents; Z88.8 Allergy status to other drugs, medicaments and biological substances
CPT/HCPCS: 29873; 29999; 36415; 80053; 82947; 85027; A9270; J0330; J0690; J1100; J2704; J2710; J3010; J3490; J7120